=== PATIENT | female | born 1945 | race Caucasian/White ===

== ENCOUNTER 2022-10-23 11:14 | Outpatient (CLI) | payer OTHER, SELFPAY ==
[2022-10-23 15:14] LABS: SARS PCR* Negative SARS-CoV-2 (Negative)
== END 2022-10-23 11:15 | disposition home or self-care (01) ==
LOC: FBOREF 11:14
PROVIDERS: PCP Internal Medicine; Visit Provider Orthopaedic Surgery
DX: Z20.822 Contact with and (suspected) exposure to COVID-19 (principal)
CPT/HCPCS: 87635

== ENCOUNTER 2022-10-24 08:11 | Day surgery (SDC) | payer OTHER, SELFPAY ==
[2022-10-24] VITALS (23 sets, daily range): BP systolic 96–151; BP diastolic 53–74; PULSE 52–66; RESP 16–21; TEMP 36–36.5; O2SAT 93–100; BMI 30.7
[2022-10-24] MEDS: LACTATED RINGERS 1000 ML 1,000 ML 100 ML IV ×2 (08:20→10:56)
[2022-10-24] MEDS: OXYCODONE (CR) 10 MG TAB.ER.12H PO (09:03)
[2022-10-24] MEDS: CELECOXIB 200 MG CAPSULE PO (09:03)
[2022-10-24] MEDS: ACETAMINOPHEN 500 MG TABLET 1000 MG PO ×3 (09:03→22:12)
[2022-10-24] MEDS: SODIUM CHLORIDE 0.9 % (FLUSH) 10 ML SYRINGE IVF (09:16)
[2022-10-24] MEDS: MIDAZOLAM HCL 1 MG/ML inj IVP (09:37)
[2022-10-24] MEDS: fentaNYL 100 MCG/2 ML inj IVP (09:37)
--- NOTE | 2022-10-24 09:42 | SUR.PREOP ---
TIME?OUT:?0935 PT/RN/MDA?VERIFICATION?OF?SURGICAL?SITE Left [place],?PROCEDURE nerve block,?AND?CONSENT OBTAINED?PRIOR?TO?INVASIVE?PROCEDURE.
[2022-10-24] MEDS: CEFAZOLIN 1 GM inj IVP (10:30)
[2022-10-24] MEDS: TRANEXAMIC ACID 100 MG/ML INJ 1000 MG IV (10:40)
--- NOTE | 2022-10-24 11:56 | P.NB_ITS ---
Nerve Block Nerve Block Time Seen by Provider: 09:34 Date Seen: 10/24/22 Type of block requested by surgeon for post-operative analgesia: supraclavicular Side: left Time out performed: Yes Verification of patient name: Yes Verification of date of : Yes Site marking: site marked Name of person performing procedure: Hank Continuous monitoring Was continuous monitoring of O2 sat, B/P, radiation monitor, recorded every 15 minutes?: Yes Procedure Checklist: sterile prep, needles and gloves Ultrasound guided. Images saved: Yes Medications given in 5ml increments after negative aspiration: Ropivicaine %: 0.5 mL: 20 Needle gauge: 22 Decadron (mg): 10 Precedex (mcg): 25 Patient tolerated procedure well: Yes Block Charges Block Charge (with Pro Fee): Brachial Plexus Use of Ultrasound Machine for Block: Yes- US Guidance/pain block
--- NOTE | 2022-10-24 11:57 | W.ANESCHARGE ---
Anesthesia Charges Start Date/Time Anesthesia Start Date: 10/24/22 Anesthesia Start Time: 10:13 Stop Date/Time Anesthesia Stop Date: 10/24/22 Anesthesia Stop Time: 13:05 Summary Extremes of Age - Over 70 or under 1: MDA
[2022-10-24] MEDS: VANCOMYCIN 100 MG/ML INJ 1000 MG TOPICAL (12:23)
--- NOTE | 2022-10-24 12:23 | W.ANESCHARGE ---
Anesthesia Charges Start Date/Time Anesthesia Start Date: 10/24/22 Anesthesia Start Time: 10:13 Stop Date/Time Anesthesia Stop Date: 10/24/22 Anesthesia Stop Time: 13:05 Summary Extremes of Age - Over 70 or under 1: [employer]
--- NOTE | 2022-10-24 12:24 | CRLHL7_ITS ---
For Patients: As a result of the Cures Act, medical imaging exams and procedure reports are released immediately into your electronic medical record. You may view this report before your referring provider. If you have questions, please contact your health care provider. Indication: POSTOP REVERSE SHOULDER ARTHROPLASTY Technique: Two views left shoulder Findings/Impression: Hardware from a left total reverse shoulder arthroplasty is in satisfactory position. Bone alignment is normal. No sign of acute fracture. Postop changes are within normal limits. Dictated by Oral Bernard MD @ 10/24/2022 3:44:10 PM (Electronically Signed)
--- NOTE | 2022-10-24 12:30 | PM.ORPRC ---
Procedure Note Date of procedure: 10/24/22 Procedure: PREOPERATIVE DIAGNOSIS: Left shoulder rotator cuff tear arthropathy POSTOPERATIVE DIAGNOSIS: Left shoulder rotator cuff tear arthropathy NAME OF OPERATION: Left upper extremity reverse shoulder arthroplasty SURGEON: Herb Stevens MD RETAIL EVENT COORDINATOR: Dot Ash PA-C ANESTHESIA: General endotracheal ESTIMATED BLOOD LOSS: 100 mL COMPLICATIONS: None SPECIMENS: None DRAINS: None PREOPERATIVE ANTIBIOTICS: Ancef 1 grams IMPLANTS: 1. Tornier 25mm x 35 mm baseplate 2. 36mm standard glenosphere 3. 3B humeral stem 4. Low eccentric +0 humeral tray 5. 36mm +6 polyethylene INDICATIONS: The patient is a 76-year-old with a longstanding history of severe, unrelenting left shoulder pain secondary to rotator cuff tear arthropathy. Despite appropriate nonoperative management, including activity modification, anti-inflammatories, bzeu-nlx-cryypby pain medication, physical therapy, and injections they continue to have pain and disability. Operative intervention was offered. The risks, benefits and expected outcomes were discussed in detail. These included but were not limited to: Infection, bleeding, injury to blood vessel or nerve, venous thromboembolism. All questions were answered to their satisfaction. Use of an entry level assistant manager was necessary throughout the case for patient positioning and safety, soft tissue retraction, and closure. PROCEDURE: General anesthesia was administered. The patient was placed in the lazy beach chair position on the operating room table. The left upper extremity was prepped and draped in the usual sterile fashion. A standard deltopectoral incision was made. Subcutaneous dissection was taken with electrocautery to the deltopectoral interval. The cephalic vein was small. Therefore it was cauterized and divided. We bluntly entered the deltopectoral interval. We freed up the deltoid. The upper 1/3 of the insertion of the pectoralis was divided with cautery. The static retractor was placed. The clavipectoral fascia and CA ligament were divided. The circumflex vessels were controlled with electrocautery. The biceps was dissected out of the bicipital groove, was tagged with a #2 FiberWire suture and divided proximally. Two fiberWire sutures were placed in the subscapularis. The subscap was subperiosteally elevated off of the lesser tuberosity. The humeral head was delivered into the wound. The intramedullary humeral cutting guide was placed. We made the cut at the anatomic neck, in 30? of retroversion. Humeral sounds were used to assess the diameter of the canal. The broach was placed and had good rotational stability. The calcar reamer was used and the protective base plate cover was placed. Attention was then turned to the glenoid. Hohmann retractors were placed posteriorly. The labrum and biceps stump were sharply debrided. The origin of the inferior glenohumeral ligaments were subperiosteally released off of the glenoid. The drill guide was placed. The guide pin was placed in 0? of cephalic tilt. The reamer was used to bleeding bone. The central drill was used x2. The standard base plate was placed. This had excellent purchase. Locking screws were placed. The glenosphere was placed, the set screw was tightened. Attention then returned to the humerus. We placed a low eccentric standard base plate and standard poly. We reduced the shoulder and took it through a range of motion. It was found to be stable with appropriate soft tissue tension. Trial humeral components were removed. The biceps was tenodesed in the bicipital groove with drill holes and our previously placed FiberWire suture. We placed #2 FiberWire sutures in the lesser tuberosity for subsequent subscap repair. We assembled the humeral component on the back table. We placed it in the center of our subscapularis repair sutures and tapped it down to our humeral cut. This had excellent purchase. The shoulder was reduced and again was found to be stable with appropriate soft tissue tension. We did a 3 min dilute Betadine solution soak. We irrigated the wound with 3 L of normal saline via pulse lavage. We repaired the subscapularis to the lesser tuberosity with our previously placed FiberWire sutures. 1 g of Vancomycin powder was left in the soft tissues. The deltopectoral interval was loosely reapproximated with an 0 Vicryl in an interrupted [id number] fashion. Subcutaneous tissues were closed with the 2-0 Vicryl and a running 3-0 Monocryl suture. The skin was sealed with glue. A dry dressing and sling were applied. Sponge and needle counts were correct x2. The patient tolerated the procedure well, there were no apparent complications. They were awakened and extubated in the operating room, taken to the postanesthesia care unit in satisfactory condition. PLAN: The patient will be mobilized with physical therapy. The sling will be used for 6 weeks postoperatively. Active range of motion in forward flexion and abduction as tolerates. No external rotation greater than 0? for 6 weeks postoperatively. They will be discharged to home once medically appropriate.
--- NOTE | 2022-10-24 14:16 | P.IMCN_ITS ---
Date of Consult Patient: [place] Patient Consult date: 10/24/22 Requesting Physician: Orthopedics Primary Care Provider: Juju Mathews Consult Narrative Reason for consult: Manage medical problems postoperatively. Narrative: Jami Frost is a 76 year old female who underwent a left reverse total shoulder arthroplasty earlier today. This was uncomplicated. Her active medical problems are as follows: 1. Type 2 diabetes - she does not routinely check her blood sugars. She takes glimepiride or Amaryl 4 mg twice daily, metformin a 1000 mg twice daily, and linagliptin 5 mg once daily. Her A1c was 9.1 on 10/16/2022. 2. Hypertension - well controlled on lisinopril 10 mg daily. Her potassium was 5.1 on 10/16/2022. 3. Hyperlipidemia - she takes Pravastatin 40 mg daily for this. 4. Depression - she takes Effexor XR 150 mg daily for this. 5. Dementia Review of Systems Status of ROS: Reports: 10 or more systems reviewed and unremarkable except as noted in History and below Musculo: Reports: other (She has decreased sensation in her left upper e xtremity due to her block.) PFSH PFS Medical History (Updated 10/24/22 @ 14:43 by Yohannes Barker MD) Anemia Arthritis Dementia Depression Diabetes Elevated cholesterol Fibromyalgia Folliculitis GERD (gastroesophageal reflux disease) Hypertension Incontinence of urine PONV (postoperative nausea and vomiting) RLS (restless legs syndrome) Surgical History H/O arthroscopy of shoulder History of bladder suspension procedure S/p reverse total shoulder arthroplasty Family History Mother Cancer Father Brain cancer Sister Colon cancer Social History (Updated 10/24/22 @ 14:52 by Yohannes Barker MD) Narrative: She is and lives in [place], [place] with her . Smoking Status: Never smoker How often do you have a drink containing alcohol: never AUDIT-C Alcohol total score: 0 Non-prescribed substance use: denies use Caffeine: Yes (Diet Coke, 3 cans/day) service: No Meds Home Medications and Allergies Home Medications Medication Instructions Recorded Confirmed Type acetaminophen 500 mg capsule 1,000 mg PO Q6H PRN 10/02/22 10/24/22 History aspirin 81 mg tablet,delayed 81 mg PO QDAY 10/02/22 10/24/22 History release cholecalciferol (vitamin D3) 50 50 mcg PO QDAY 10/02/22 10/24/22 History mcg (2,000 unit) capsule glimepiride 4 mg tablet 4 mg PO QDAY 10/02/22 10/24/22 History linagliptin 5 mg tablet (Tradjenta) 5 mg PO QDAY 10/02/22 10/24/22 History lisinopril 10 mg tablet 10 mg PO QDAY 10/02/22 10/24/22 History metformin 500 mg tablet 1,000 mg PO BID 10/02/22 10/24/22 History pravastatin 40 mg tablet 40 mg PO QDAY 10/02/22 10/24/22 History ropinirole 2 mg tablet 2 mg PO QDAY PRN 10/02/22 10/24/22 History venlafaxine 150 mg 150 mg PO DAILY 10/02/22 10/24/22 History capsule,extended release 24 hr Allergies Allergy/AdvReac Type Severity Reaction Status Date / Time pioglitazone [From [facility]] Allergy Unknown Verified 10/24/22 08:35 simvastatin Allergy Unknown Verified 10/24/22 08:35 penicillin V Allergy Rash Verified 10/24/22 08:35 Exam Const: Vital Signs, click to edit/add: Vital Signs - 24 hr 10/24/22 08:45 10/24/22 09:30 10/24/22 09:35 Temperature 97.7 F Pulse Rate 65 66 66 Respiratory Rate 16 16 16 Blood Pressure 139/65 135/67 135/66 Pulse Oximetry 99 99 100 Oxygen Delivery Me thod Room Air Nasal Cannula Nasal Cannula Oxygen Flow Rate 2 2 10/24/22 09:40 10/24/22 13:05 10/24/22 13:10 Temperature 97.0 F L Pulse Rate 60 54 L 53 L Respiratory Rate 16 18 18 Blood Pressure 130/58 L 125/60 139/62 Pulse Oximetry 100 100 100 Oxygen Delivery Me thod Nasal Cannula Non Rebreather Mas k Non Rebreather Mas k Oxygen Flow Rate 2 5 5 10/24/22 13:30 10/24/22 13:15 10/24/22 13:20 Temperature Pulse Rate 60 52 L 60 Respiratory Rate 18 18 18 Blood Pressure 142/72 H 128/61 104/60 Pulse Oximetry 99 100 99 Oxygen Delivery Me thod Nasal Cannula Non Rebreather Mas k Nasal Cannula Oxygen Flow Rate 2 5 2 10/24/22 13:25 10/24/22 13:35 Temperature 97.0 F L Pulse Rate 60 59 L Respiratory Rate 18 18 Blood Pressure 96/53 L 114/67 Pulse Oximetry 99 99 Oxygen Delivery Me thod Nasal Cannula Nasal Cannula Oxygen Flow Rate 2 2 Documenting provider has reviewed patient's vital signs: yes Common normals: no apparent distress General appearance: cooperative and comfortable Orientation/consciousness: Yes awake HENMT: Common normals: normocephalic, head/scalp atraumatic and external ears normal Head and scalp: normocephalic and atraumatic Face and sinus: normal facial exam External ear: external ears normal Throat: posterior oropharynx normal Eye: Common normals: EOMs intact bilaterally General eye: normal appearance of both eyes Periorbital: periorbital findings normal Eyelid: eyelids normal Neck & C-Spine: Common normals: no lymphadenopathy and no JVD Resp: Common normals: normal respiratory effort Effort & inspection: able to speak in complete sentences Cardio: Common normals: no JVD, regular rate, regular rhythm, S1 normal heart sound and S2 normal heart sound Rate: regular rate Rhythm: regular rhythm Heart sounds: S1 normal and S2 normal Peripheral pulses: radial pulses present GI: Common normals: Normal to inspection, nondistended, normoactive bowel sounds present, soft to palpation and non-tender Inspection: normal to inspection Auscultation: normoactive bowel sounds Palpation: soft Rectal Exam - Female: deferred : Common normals: no CVA tenderness Bladder/kidney exam: no CVA tenderness Back & Pelvis: Common normals: no CVA tenderness Neuro: Sensorium/orientation: awake Sensory exam: extremities (no edema noted in bilateral lower ext) Psych: Common normals: speech normal Appearance: grossly normal Attitude: calm Activity/motor behavior: appropriate eye contact Speech: normal speech Mood and affect: euthymic mood Skin: Common normals: no rashes or lesions noted General skin exam: no rashes or lesions noted Assessment and Plan Assessment and plan (1) Diabetes: Status: Acute (2) Hypertension: Status: Acute (3) Dementia: Status: Acute (4) Depression: Status: Acute (5) RLS (restless legs syndrome): Status: Acute Plan Will wait until she is eating to restart her diabetes medicine. Will wait until her blood pressure comes up to start her blood pressure medicine. Will monitor for behavioral disturbances. Will restart her Effexor XR. Will make her ropinirole available as needed for restless legs. Will recheck her potassium as she had a potassium of 5.1 on 10/16/2022. Please send a copy of this dictation to Dr. Juju Mathews. Yohannes Barker MD
[2022-10-24] MEDS: CEFAZOLIN 1 GM in 0.9 % SODIUM CHLORIDE Mini-bag 100 ML IVPB ×2 (16:36→23:48)
[2022-10-24] MEDS: LACTATED RINGERS 1000 ML 1,000 ML 75 ML IV (17:58)
--- NOTE | 2022-10-24 20:23 | PC.NURSE ---
Nursing Care Hours: [id number] Pt this shift came from PACU fatigued and pale. 2L NC to keep sats above 90%. With in the first hour pt more alert and responsive. Difficulty answering healthcare questions for hospitalist but otherwise alert and oriented. Stable on room air once awake, VSS, no c/o pain. Nerve block still effective, pt unable to move fingers. Color and warmth intact, L radial pulse strong. Up to bathroom and successful void. Up to chair for dinner. Pt has a flat affect and delayed speech, reported from PACU nurse who did admission assessment that this was seen before surgery. Ice to L shoulder.
[2022-10-24] MEDS: SENNOSIDES 1 TAB TABLET 2 TAB PO (20:52)
[2022-10-24] MEDS: PRAVASTATIN SODIUM 20 MG TABLET 40 MG PO (20:52)
[2022-10-25 03:45] VITALS: BP 121/48; PULSE 62; RESP 18; TEMP 36.6; O2SAT 95
[2022-10-25] MEDS: ACETAMINOPHEN 500 MG TABLET 1000 MG PO ×2 (03:46→09:44)
--- NOTE | 2022-10-25 05:18 | PC.NURSE ---
END OF SHIFT NOTE: PT PLEASANT AND COOPERATIVE. PT OCCASIONALLY FORGETFUL. PT DENIES CP, SOB, N/V. AMBULATES WITH SBA. VSS ON RA; AFEBRILE. BG@0145 =[id number]; PER [facility] [place] 5UNITS SSI GIVEN. ACTIVE ICE TO LEFT SHOULDER. BED ALARM ON AND CALL LIGHT WITHIN REACH OF PT.?
[2022-10-25 06:58] LABS: Hematocrit 28.9 % (33.0-51.0); Hemoglobin* 9.3 gm/dL (12.0-16.0); Mean Corpuscular HGB Conc 32 gm/dL (32-36); Mean Corpuscular Hemoglobin 27 pg (26-34); Mean Corpuscular Volume 85 fL (80-100); Platelet Count* 215 K/uL (140-440); White Blood Count* 11.68 K/uL (4.50-11.00)
[2022-10-25 07:00] VITALS: BP 141/11; PULSE 65; PULSE 70; RESP 16; TEMP 36.4; O2SAT 93
[2022-10-25 07:04] LABS: Slide Review Reflex No
[2022-10-25 07:19] LABS: Potassium* 5.1 mmol/L (3.6-5.1); Sodium* 130 mmol/L (135-149)
[2022-10-25 07:22] LABS: Blood Urea Nitrogen* 29 mg/dL (7-30); Creatinine* 1.2 mg/dL (0.5-1.5); Est. Creatinine Clearance* 29.63; Estimated Glomerular Filt Rate 47 ml/min
[2022-10-25] MEDS: CEFAZOLIN 1 GM in 0.9 % SODIUM CHLORIDE Mini-bag 100 ML IVPB (07:44)
--- NOTE | 2022-10-25 09:19 | PM.ORPN ---
Subjective Subjective Time Seen by Provider: 08:00 Date Seen: 10/25/22 Principal diagnosis: Status post left reverse total shoulder arthroplasty Interval history: Patient is comfortable this morning. Her block is working well. She has needed no narcotic pain medication. She will be discharging today to home with her . Ortho Exam Narrative Exam Narrative: Alert and oriented x3. Patient is in no acute distress. Converses without labored breathing. Hearing is grossly intact. Examination of the left upper extremity shows the dressing is intact. Ecchymosis is present. Soft tissue edema is present. Left pulses are 2+ radial and ulnar. She has no sensation in her hand. She has no motor. Block is working well. Arm is in a sling. Is adjusted Const Vital Signs, click to edit/add: Vital Signs - 24 hr 10/24/22 09:30 10/24/22 09:35 10/24/22 09:40 Temperature Pulse Rate 66 66 60 Pulse Rate [Left Radial] Pulse Rate [Right Pulse Oximeter] Respiratory Rate 16 16 16 Blood Pressure 135/67 135/66 130/58 L Blood Pressure [Left Arm] Blood Pressure [Right Arm] Pulse Oximetry 99 100 100 Oxygen Delivery Method Nasal Cannula Nasal Cannula Nasal Cannula Oxygen Flow Rate 2 2 2 10/24/22 13:05 10/24/22 13:10 10/24/22 13:30 Temperature 97.0 F L Pulse Rate 54 L 53 L 60 Pulse Rate [Left Radial] Pulse Rate [Right Pulse Oximeter] Respiratory Rate 18 18 18 Blood Pressure 125/60 139/62 142/72 H Blood Pressure [Left Arm] Blood Pressure [Right Arm] Pulse Oximetry 100 100 99 Oxygen Delivery Method Non Rebreather Mask Non Rebreather Mask Nasal Cannula Oxygen Flow Rate 5 5 2 10/24/22 13:15 10/24/22 13:20 10/24/22 13:25 Temperature Pulse Rate 52 L 60 60 Pulse Rate [Left Radial] Pulse Rate [Right Pulse Oximeter] Respiratory Rate 18 18 18 Blood Pressure 128/61 104/60 96/53 L Blood Pressure [Left Arm] Blood Pressure [Right Arm] Pulse Oximetry 100 99 99 Oxygen Delivery Method Non Rebreather Mask Nasal Cannula Nasal Cannula Oxygen Flow Rate 5 2 2 10/24/22 13:35 10/24/22 15:27 10/24/22 15:27 Temperature 97.0 F L 96.8 F L Pulse Rate 59 L 54 L Pulse Rate [Left Radial] Pulse Rate [Right Pulse Oximeter] 54 L Respiratory Rate 18 21 Blood Pressure 114/67 Blood Pressure [Left Arm] 124/70 Blood Pressure [Right Arm] Pulse Oximetry 99 Oxygen Delivery Method Nasal Cannula Nasal Cannula Oxygen Flow Rate 2 2 10/24/22 14:15 10/24/22 14:30 10/24/22 14:45 Temperature 96.8 F L Pulse Rate Pulse Rate [Left Radial] 55 L 54 L 53 L Pulse Rate [Right Pulse Oximeter] Respiratory Rate 21 18 18 Blood Pressure Blood Pressure [Left Arm] Blood Pressure [Right Arm] 128/71 115/71 112/69 Pulse Oximetry 97 94 Oxygen Delivery Method Nasal Cannula Room Air Room Air Oxygen Flow Rate 2 10/24/22 15:16 10/24/22 15:30 10/24/22 16:00 Temperature 97.4 F L Pulse Rate Pulse Rate [Left Radial] 60 60 61 Pulse Rate [Right Pulse Oximeter] Respiratory Rate 18 18 Blood Pressure Blood Pressure [Left Arm] Blood Pressure [Right Arm] 115/55 L 151/65 H Pulse Oximetry 94 94 Oxygen Delivery Method Room Air Room Air Room Air Oxygen Flow Rate 10/24/22 17:00 10/24/22 18:00 10/24/22 19:00 Temperature 97.4 F L Pulse Rate Pulse Rate [Left Radial] 61 60 Pulse Rate [Right Pulse Oximeter] Respiratory Rate 18 18 18 Blood Pressure Blood Pressure [Left Arm] Blood Pressure [Right Arm] 121/69 105/74 140/57 H Pulse Oximetry 94 94 93 Oxygen Delivery Method Room Air Room Air Room Air Oxygen Flow Rate 10/24/22 20:00 10/24/22 23:27 10/25/22 03:45 Temperature 97.5 F L 97.8 F Pulse Rate Pulse Rate [Left Radial] 60 Pulse Rate [Right Pulse Oximeter] 63 62 Respiratory Rate 16 16 18 Blood Pressure Blood Pressure [Left Arm] Blood Pressure [Right Arm] 128/56 L 121/48 L Pulse Oximetry 94 95 Oxygen Delivery Method Room Air Room Air Oxygen Flow Rate 10/25/22 07:00 Temperature 97.6 F Pulse Rate Pulse Rate [Left Radial] Pulse Rate [Right Pulse Oximeter] 70 Respiratory Rate 16 Blood Pressure Blood Pressure [Left Arm] Blood Pressure [Right Arm] 141/11 H Pulse Oximetry 93 Oxygen Delivery Method Room Air Oxygen Flow Rate Assessment and Plan Assessment and plan (1) Status post reverse arthroplasty of left shoulder: Problem details: RSA (10/24/2022, Dr. Stevens) Status: Acute Assessment and Plan: Patient is comfortable this morning. Plan for discharge is to home when they meet discharge criteria. Patient will wear the sling for 6 weeks post surgery. They can take it off for comfort and for exercises. Activity: no external rotation of the operative shoulder past 0? x 6 weeks. Forward flexion and abduction of the shoulder is allowed as tolerated. They will work on range of motion of the elbow, wrist, fingers once the block has wore off on the operative extremity. Patient will begin physical therapy for the operative shoulder next week. For discharge, oxycodone and Tylenol for pain. Do not drive while on narcotic pain medication. Drive only when safe to do so, when they have normal use/function of the upper extremity, this will likely take 6 weeks. Patient will minimize and discontinue the narcotic as soon as possible. I would like her to take minimal oxycodone. I do not think she will tolerate this well. A half a tablet should be sufficient with Tylenol. She has not had any in the hospital, for she has not needed any. Block is working well. Remove dressing in 1 week. Dressing is waterproof. May shower. Surgical glue covers the wound. Do not scrub the wound. Expect swelling and bruising about the shoulder and upper extremity. Use of ice/active ice without restriction. Notify Orthopedics his swelling is excessive. notify Orthopedics with any questions or concerns. [phone] Return to Orthopedic clinic next week for a wound check Return to clinic in [address] Stevens.
[2022-10-25] MEDS: SENNOSIDES 1 TAB TABLET 2 TAB PO (09:42)
[2022-10-25] MEDS: VENLAFAXINE ER 75 MG CAPSULE 150 MG PO (09:44)
--- NOTE | 2022-10-25 15:02 | PC.NURSE ---
Pt alert and oriented to self only. Pt denies pain, SOB, chest pain, and N/V. Pt left shoulder dressing is CDI. Pt up with SBA to bathroom and chair. Pt tolerating a regular diet but only finished 25% of breakfast this morning 10/25/22. Pt is voiding. Written and Verbal education given to pt and spouse (caregiver) who verbalized their understanding. Pt IV was taken out at discharge at 1245. Pt left via wheelchair with spouse.
--- NOTE | 2022-10-25 15:16 | P.DS_ITS ---
DS: Providers Provider Time Seen by Provider: 09:00 Date Seen: 10/25/22 Date of admission: 10/24/2022 Primary care physician: Juju Mathews Admitting Clinician: Herb Stevens MD Consults: 10/24/22 13:58 Consult to Occupational Therapy [CONS] Routine Comment: Reason(s) for OT Consult:: Evaluate and Treat Any Restrictions?:: See Comment Consult to Physical Therapy [CONS] Routine Comment: Reason(s) for PT Consult:: Evaluate and Treat Any Restrictions?:: See Comment Consult to Physician [CONS] Routine Comment: Consulting Provider: Hospitalists Has provider been notified: No Consult to Senior Piping Designer [CONS] Routine Comment: Reason for Consult:: Discharge Planning Needs Attending Physician on discharge: Herb Stevens MD Date of Discharge: 10/25/22 DS: Diagnosis Discharge Diagnosis (1) Status post reverse arthroplasty of left shoulder: Status: Acute Problem details: RSA (10/24/2022, Dr. Stevens) (2) Diabetes: Status: Acute (3) Hypertension: Status: Acute (4) Dementia: Status: Acute (5) RLS (restless legs syndrome): Status: Acute (6) Depression: Status: Acute DS: Summary Hospital Course Hospital Course: 76-year-old woman presented for elective left shoulder reverse arthroplasty. This is undertaken successfully without any apparent complications. Recovery relatively uneventful. Status at Discharge Cognitive/behavioral status at discharge: Baseline level of dementia. Functional status at discharge: independent ambulation Overall status at discharge: patient is progressing back to baseline Time Spent with Patient Time attestation: Total time spent providing and/or coordinating discharge services: Time spent: Less than 30 minutes Exam Narrative: Exam Narrative: HENMT:?? Common normals: no rmocephalic, head/ scalp atraumatic a nd external ears n ormal? Head and sc alp: normocephalic and atraumatic? F rasta and sinus: nor mal facial exam? E xternal ear: exter nal ears normal? T hroat: posterior o ropharynx normal Eye:?? Common normals: EO Ms intact bilatera lly? General eye: normal appearance of both eyes? Inga orbital: periorbit al findings normal ? Eyelid: eyelids normal Neck & C-Spine:??M Common normals: no lymphadenopathy a nd no JVD Resp:?? Common normals: no rmal respiratory e ffort? Effort & in spection: able to speak in complete sentences Cardio:?? Common normals: no JVD, regular rate , regular rhythm, S1 normal heart so und and S2 normal heart sound? Rate: regular rate? Rhy thm: regular rhyth m? Heart sounds: S 1 normal and S2 no rmal? Peripheral p ulses: radial puls es present GI:?? Common normals: No rmal to inspection , nondistended, no rmoactive bowel so unds present, soft to palpation and non-tender? Inspec tion: normal to in spection? Ausculta tion: normoactive bowel sounds? Palp ation: soft? Recta l Exam - Female: d eferred :?? Common normals: no CVA tenderness? B ladder/kidney exam : no CVA tendernes s Back & Pelvis:?? Common normals: no CVA tenderness Neuro:?? Sensorium/orientat ion: awake? Sensor y exam: extremitie s (no edema noted in bilateral lower ext) Psych:?? Common normals: sp eech normal? Appea domenico: grossly nor mal? Attitude: anni m? Activity/motor behavior: appropri ate eye contact? S peech: normal spee ch? Mood and affec t: euthymic mood Skin:?? Common normals: no rashes or lesions noted? General sk in exam: no rashes or lesions noted Const: Vital Signs, click to edit/add: Vital Signs - 24 hr 10/24/22 15:27 10/24/22 15:27 10/24/22 15:30 Temperature 96.8 F L Pulse Rate 54 L Pulse Rate [Left R adial] 60 Pulse Rate [Right Pulse Oximeter] 54 L Respiratory Rate 21 Blood Pressure [Le ft Arm] 124/70 Blood Pressure [Ri ght Arm] Pulse Oximetry 94 Oxygen Delivery Me thod Nasal Cannula Room Air Oxygen Flow Rate 2 10/24/22 16:00 10/24/22 17:00 10/24/22 18:00 Temperature Pulse Rate Pulse Rate [Left R adial] 61 61 Pulse Rate [Right Pulse Oximeter] Respiratory Rate 18 18 18 Blood Pressure [Le ft Arm] Blood Pressure [Ri ght Arm] 151/65 H 121/69 105/74 Pulse Oximetry 94 94 Oxygen Delivery Me thod Room Air Room Air Room Air Oxygen Flow Rate 10/24/22 19:00 10/24/22 20:00 10/24/22 23:27 Temperature 97.4 F L 97.5 F L Pulse Rate Pulse Rate [Left R adial] 60 60 Pulse Rate [Right Pulse Oximeter] 63 Respiratory Rate 18 16 16 Blood Pressure [Le ft Arm] Blood Pressure [Ri ght Arm] 140/57 H 128/56 L Pulse Oximetry 93 94 Oxygen Delivery Me thod Room Air Room Air Oxygen Flow Rate 10/25/22 03:45 10/25/22 07:00 10/25/22 07:00 Temperature 97.8 F 97.6 F Pulse Rate Pulse Rate [Left R adial] 65 Pulse Rate [Right Pulse Oximeter] 62 70 70 Respiratory Rate 18 16 16 Blood Pressure [Le ft Arm] Blood Pressure [Ri ght Arm] 121/48 L 141/11 H Pulse Oximetry 95 93 Oxygen Delivery Me thod Room Air Room Air Oxygen Flow Rate Documenting provider has reviewed patient's vital signs: yes DS: Data Data Completed and Pending Labs on day of discharge: Labs from last 24 hours 10/25/22 10/25/22 05:56 05:56 WBC 11.68 H RBC 3.40 L Hgb 9.3 L Hct 28.9 L MCV 85 MCH 27 MCHC 32 Plt Count 215 Sodium 130 L Potassium 5.1 BUN 29 Creatinine 1.2 Estimated Creat Clear 29.63 Estimated GFR 47 Discharge Plan Discharge Disposition: Home, Self-Care Discharging Surgeon: Herb Stevens Follow-Up Appointment: One week Prescriptions: New sennosides [Senna Lax] 8.6 mg Tablet 17.2 mg PO BID PRN (Reason: constipation) Qty: 100 0RF acetaminophen 500 mg capsule 500 - 1,000 mg PO Q6H MDD 4000mg per day PRN (Reason: pain) Qty: 100 0RF oxycodone 5 mg Tablet 2.5 mg PO Q4-6H MDD 6 tabs per day PRN (Reason: Pain) Qty: 30 0RF Rx Instructions: Minimize. Discontinue as soon as possible Continued aspirin 81 mg tablet,delayed release (DR/EC) 81 mg PO QDAY Hold Instructions: Resume on 11/24/22. Resume aspirin 81 mg daily upon completion of the aspirin 81 twice daily order per your orthopedic surgeon. cholecalciferol (vitamin D3) 50 mcg (2,000 unit) capsule 50 mcg PO QDAY glimepiride 4 mg tablet 4 mg PO QDAY Tradjenta 5 mg tablet 5 mg PO QDAY lisinopril 10 mg tablet 10 mg PO QDAY metformin 500 mg tablet 1,000 mg PO BID pravastatin 40 mg tablet 40 mg PO QDAY ropinirole 2 mg tablet 2 mg PO QDAY PRN venlafaxine 150 mg capsule,extended release 24hr 150 mg PO DAILY Discontinued acetaminophen 500 mg capsule 1,000 mg PO Q6H PRN Activity Detail: Wear the sling for 6 weeks post-surgery. Take it off for comfort and for exercises. Activity: no external rotation of the operative shoulder past 0? x 6 weeks. Forward flexion and abduction of the shoulder is allowed as tolerated. Range of motion of the elbow, wrist, fingers once the block has worn off on the operative extremity 3 or more times per day. Begin physical therapy for the operative shoulder next week. Do not drive while on narcotic pain medication. Drive only when safe to do so, when you have normal use/function of the upper extremity, this will likely take 6 weeks due to wearing a sling. Minimize and discontinue the narcotic as soon as possible. Remove dressing in 1 week. Dressing is waterproof. May shower. Surgical glue covers the wound. Do not scrub the wound. Expect swelling and bruising about the shoulder and upper extremity. Use of ice/active ice without restriction. notify Orthopedics with any questions or concerns [phone]. Return to Orthopedic clinic next week for a wound check as scheduled. Return to clinic in [address] Stevens. Discharge Diet: Diabetic Patient Instructions: Acetaminophen (By mouth), Oxycodone, Rapid Release (By mouth) (ETH-Oxydose, Oxy IR,..., Senna (By mouth) (Sen, Senna-lax), Shoulder Arthroplasty (DC) Forms: Work/School Release Follow-up: Kaity Amato PA-C [Physician Systems Integrator] - 11/17/22 10:30 am ([facility]. ) Juju Mathews [Primary Care Provider] - Discharge Orders: Discharge Order (Routine); Ordered 10/25/22 Ordered By: Kaity Amato Consulting provider completed their portion of the discharge: Yes
== END 2022-10-25 12:45 | disposition home or self-care (01) ==
LOC: OR 08:12 → MEDSURG 08:15
PROVIDERS: PCP Internal Medicine; Visit Provider Orthopaedic Surgery
PROC: 0RRJ0JZ Replacement of Right Shoulder Joint with Synthetic Substitute, Open Approach (ICD-10-PCS; CPT 23472; principal; 2022-10-24 10:15)
DX: M75.102 Unspecified rotator cuff tear or rupture of left shoulder, not specified as traumatic (principal); G89.18 Other acute postprocedural pain; E11.9 Type 2 diabetes mellitus without complications; I10 Essential (primary) hypertension; F03.90 Unspecified dementia, unspecified severity, without behavioral disturbance, psychotic disturbance, mood disturbance, and anxiety; G25.81 Restless legs syndrome; E78.5 Hyperlipidemia, unspecified; F32.A Depression, unspecified; Z79.84 Long term (current) use of oral hypoglycemic drugs
CPT/HCPCS: 23472; 01630; 01638; 36415; 64415; 73030; 76942; 82565; 82962; 84132; 84295; 84520; 85027; 97110; 97116; 97162; 97165; 97535; 99100; 99254; A9270; C1713; C1776; J0330; J0690; J1100; J2250; J2370; J2405; J2704; J2795; J3010; J3370; J7120; L3670

== ENCOUNTER 2023-03-02 12:45 | Outpatient (CLI) | payer OTHER, SELFPAY ==
--- NOTE | 2023-03-02 13:00 | CRLHL7_ITS ---
For Patients: As a result of the Century Cures Act, medical imaging exams and procedure reports are released immediately into your electronic medical record. You may view this report before your referring provider. If you have questions, please contact your health care provider. Indication: Neck and arm pain. Technique: MRI of the cervical spine was performed without the use of intravenous contrast. Comparison: None relevant available. Findings: Portions of the examination are degraded by patient motion artifact. The vertebral body heights appear maintained without evidence of fracture. No discrete T1 hypointense marrow infiltrating process. Mild multilevel disc desiccation without significant height loss. No abnormal cord signal. Incidental partially empty sella morphology. Chronic microvascular changes of the visualized brain stem and cerebellum. Edema potentially stress or reactive process involving the left T2 facet. C2-3: No spinal canal or neural foraminal narrowing. C3-4: No spinal canal narrowing. Mild right neural foraminal narrowing secondary to uncovertebral joint and facet hypertrophy. Left neural foramina appears patent. C4-5: No spinal canal narrowing. Moderate right neural foraminal narrowing secondary to uncovertebral joint and facet hypertrophy. Left neural foramina appears patent. C5-6: Mild spinal canal narrowing. Moderate neural foraminal narrowing secondary to uncovertebral joint and facet hypertrophy. C6-7: Mild spinal canal narrowing. Moderate right and mild left neural foraminal narrowing secondary to uncovertebral joint and facet hypertrophy. C7-T1: No spinal canal or neural foraminal narrowing. Impression: 1. Motion artifact. 2. At C4-5, moderate right neural foraminal narrowing. 3. At C5-6, mild spinal canal with moderate neural foraminal narrowing. 4. At C6-7, mild spinal canal, with moderate right and mild left neural foraminal narrowing. 5. No abnormal cord signal. Dictated by Víctor Snowden MD @ 03/02/2023 3:29:44 PM (Electronically Signed)
== END 2023-03-02 12:46 | disposition home or self-care (01) ==
LOC: MRI 12:46
PROVIDERS: PCP Internal Medicine; Visit Provider Orthopaedic Surgery Orthopaedic Surgery of the Spine
DX: M48.02 Spinal stenosis, cervical region (principal); M50.221 Other cervical disc displacement at C4-C5 level; M50.222 Other cervical disc displacement at C5-C6 level; M50.223 Other cervical disc displacement at C6-C7 level
CPT/HCPCS: 72141

== ENCOUNTER 2023-08-28 13:18 | Emergency (ER) | payer OTHER, SELFPAY ==
[2023-08-28] VITALS (9 sets, daily range): BP systolic 133–158; BP diastolic 48–93; PULSE 70–80; RESP 18; TEMP 36.4; O2SAT 86–98; BMI 29.3
--- NOTE | 2023-08-28 13:41 | CRLHL7_ITS ---
For Patients: As a result of the Cures Act, medical imaging exams and procedure reports are released immediately into your electronic medical record. You may view this report before your referring provider. If you have questions, please contact your health care provider. INDICATION: Trauma, fall. TECHNIQUE: CT cervical spine without contrast. COMPARISON: February 12, 2023. FINDINGS: Vertebrae: Alignment is normal. There are no fractures or suspicious bony lesions. Discs and facet joints: There are moderate diffuse degenerative changes in the disc spaces and facet joints. Extraspinal findings: Paraspinous soft tissues are unremarkable. IMPRESSION: 1. No sign of acute injury. 2. Multilevel degenerative spondylosis. Please note that all CT scans at this facility use dose modulation, iterative reconstruction, and/or weight-based dosing when appropriate to reduce radiation dose to as low as reasonably achievable. Dictated by Jose Avelar MD @ 08/28/2023 3:34:17 PM (Electronically Signed)
--- NOTE | 2023-08-28 13:41 | CRLHL7_ITS ---
For Patients: As a result of the Century Cures Act, medical imaging exams and procedure reports are released immediately into your electronic medical record. You may view this report before your referring provider. If you have questions, please contact your health care provider. INDICATION: Trauma, fall. TECHNIQUE: CT head without contrast. COMPARISON: February 12, 2023. FINDINGS: CSF spaces: Within normal limits for age. Brain parenchyma and extra-axial spaces: The deng-white differentiation is normal. No sign of mass, hemorrhage, or midline shift. No extra-axial fluid collection. Skull base and calvarium: The visualized paranasal sinuses and mastoid air cells demonstrate no acute or significant findings. The visualized orbits are grossly unremarkable. No skull fractures. IMPRESSION: No sign of acute injury and no change from the prior exam. Please note that all CT scans at this facility use dose modulation, iterative reconstruction, and/or weight-based dosing when appropriate to reduce radiation dose to as low as reasonably achievable. Dictated by Jose Avelar MD @ 08/28/2023 3:37:43 PM (Electronically Signed)
--- NOTE | 2023-08-28 13:42 | CRLHL7_ITS ---
For Patients: As a result of the Cures Act, medical imaging exams and procedure reports are released immediately into your electronic medical record. You may view this report before your referring provider. If you have questions, please contact your health care provider. Indication: Fall Technique: Three views Comparison: None Findings/Impression: Bones: No definite evidence of fracture. Joint spaces: No dislocation. Soft tissues: Atherosclerosis. Mild heterotopic ossification adjacent to the right greater trochanter. Dictated by Zeb Jackman MD @ 08/28/2023 3:48:49 PM (Electronically Signed)
--- NOTE | 2023-08-28 13:42 | ED.GENADULT ---
HPI - General Adult General Chief complaint: Extremity Pain/Injury, Lower Stated complaint: Fell-hit head Time Seen by Provider: 08/28/23 13:32 History of Present Illness HPI narrative: This 69-year-old female comes in with her . She lives at home with him. He reports that she has significant dementia. She is a very poor historian. He reports that she fell a couple times today. These were unwitnessed falls. He reports that she has been getting more weak over the past few months. He states that she ambulates with very short steps currently. The patient was able to pivot on the wait mostly happening on her right leg when getting out of the car. She is moving all extremities but does complain of pain in the region of her left hip. She states that she thinks that she hit her head but it is clear that she does not have good memory. She does not show any sign of injury on her head and does not report any pain when palpating along the midline of her spine. Related Data Home Medications Medication Instructions Recorded Confirmed aspirin 81 mg tablet,delayed 81 mg PO QDAY 10/02/22 12/13/22 release cholecalciferol (vitamin D3) 50 50 mcg PO QDAY 10/02/22 12/13/22 mcg (2,000 unit) capsule glimepiride 4 mg tablet 4 mg PO QDAY 10/02/22 12/13/22 linagliptin 5 mg tablet (Tradjenta) 5 mg PO QDAY 10/02/22 12/13/22 lisinopril 10 mg tablet 10 mg PO QDAY 10/02/22 12/13/22 metformin 500 mg tablet 1,000 mg PO BID 10/02/22 12/13/22 pravastatin 40 mg tablet 40 mg PO QDAY 10/02/22 12/13/22 ropinirole 2 mg tablet 2 mg PO QDAY PRN 10/02/22 12/13/22 venlafaxine 150 mg 150 mg PO DAILY 10/02/22 12/13/22 capsule,extended release 24 hr Previous Rx's Medication Instructions Recorded cephalexin 500 mg capsule 2,000 mg (4 x 500 mg) PO ONCE #4 02/28/23 caps Allergies Allergy/AdvReac Type Severity Reaction Status Date / Time pioglitazone [From Actos] Allergy Unknown Verified 12/13/22 13:28 simvastatin Allergy Unknown Verified 12/13/22 13:28 penicillin V Allergy Rash Verified 12/13/22 13:28 Review of Systems Status of ROS: Reports: unobtainable due to mental status Narrative: Unable to obtain due to dementia. [facility] Medical History (Updated 08/28/23 @ 16:15 by Steve Rose MD) Health care directive on file (10/26/21) ?Z78.9 - Other specified health status (ICD-10) RLS (restless legs syndrome) ?G25.81 - Restless legs syndrome (ICD-10) PONV (postoperative nausea and vomiting) ?R11.2 - Nausea with vomiting, unspecified (ICD-10) ?Z98.890 - Other specified postprocedural states (ICD-10) Fibromyalgia ?M79.7 - Fibromyalgia (ICD-10) Dementia ?F03.90 - Unspecified dementia, unspecified severity, without behavioral disturbance, psychotic disturbance, mood disturbance, and anxiety (ICD-10) Depression ?F32.A - Depression, unspecified (ICD-10) Anemia ?D64.9 - Anemia, unspecified (ICD-10) Folliculitis ?L73.9 - Follicular disorder, unspecified (ICD-10) Arthritis ?M19.90 - Unspecified osteoarthritis, unspecified site (ICD-10) Incontinence of urine ?R32 - Unspecified urinary incontinence (ICD-10) GERD (gastroesophageal reflux disease) ?K21.9 - Gastro-esophageal reflux disease without esophagitis (ICD-10) Diabetes ?E11.9 - Type 2 diabetes mellitus without complications (ICD-10) Elevated cholesterol ?E78.00 - Pure hypercholesterolemia, unspecified (ICD-10) Hypertension ?I10 - Essential (primary) hypertension (ICD-10) Surgical History (Updated 04/19/23 @ 09:40 by Jeffy Everett) 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 Smoking Status: Never smoker Do you use any of these nicotine containing products: None Second hand tobacco smoke exposure: No How often do you have a drink containing alcohol: never AUDIT-C Alcohol total score: 0 Non-prescribed substance use: denies use Caffeine: Yes (Diet Coke, 3 cans/day) service: No Exam Narrative: Exam Narrative: Constitutional: Well-developed, well-nourished, no acute distress. HEENT: Normocephalic, atraumatic. Neck: Normal range of motion. Nontender. Supple. Heart: Regular. No murmurs. Normal rate. Intact distal pulses. Lungs: Clear to auscultation. No chest discomfort. No wheezes, rhonchi, or rales. Abdomen: Normal bowel sounds. Nontender. No rebound tenderness. Genitalia: Deferred. Back: No midline tenderness. Normal range of motion. Extremities: No pain when log-rolling either leg or when stressing her pelvis. She does show some sign of discomfort in her left hip region. Skin: Intact. No rash. Warm. No erythema or pallor. Neurologic: No altered sensation. No weakness. Alert and oriented. Psychiatric: No suicidality. No anxiety or depression. No insomnia. Nursing notes and vitals signs are reviewed. Const: Vital Signs, click to edit/add: Vital Signs - 24 hr 08/28/23 13:27 08/28/23 14:39 08/28/23 15:00 Temperature 97.6 F Pulse Rate 70 72 Pulse Rate [Pulse Oximeter] 80 Respiratory Rate 18 Blood Pressure Blood Pressure [Ri ght Upper Arm] 148/88 H Pulse Oximetry 96 94 86 L Oxygen Delivery Me thod Room Air 08/28/23 15:03 08/28/23 15:30 08/28/23 15:32 Temperature Pulse Rate 72 77 Pulse Rate [Pulse Oximeter] Respiratory Rate Blood Pressure 158/48 H 142/66 H Blood Pressure [Ri ght Upper Arm] Pulse Oximetry 93 95 Oxygen Delivery Me thod Course Vital Signs Vital signs: Initial Vital Signs Temperature 97.6 F 08/28/23 13:27 Temperature Source Temporal Artery Scan 08/28/23 13:27 Pulse Rate 80 08/28/23 13:27 Pulse Rhythm Regular 08/28/23 13:27 Respiratory Rate 18 08/28/23 13:27 Blood Pressure 148/88 H 08/28/23 13:27 Blood Pressure Mean 108 H 08/28/23 13:27 Blood Pressure Position Sitting 08/28/23 13:27 Pulse Oximetry 96 08/28/23 13:27 Oxygen Delivery Method Room Air 08/28/23 13:27 Vital Signs Temperature 97.6 F 08/28/23 13:27 Pulse Rate 80 08/28/23 13:27 Respiratory Rate 18 08/28/23 13:27 Blood Pressure 148/88 H 08/28/23 13:27 Pulse Oximetry 96 08/28/23 13:27 Oxygen Delivery Method Room Air 08/28/23 13:27 Temperature 97.6 F 08/28/23 13:27 Pulse Rate 77 08/28/23 15:32 Respiratory Rate 18 08/28/23 13:27 Blood Pressure 142/66 H 08/28/23 15:32 Pulse Oximetry 95 08/28/23 15:32 Oxygen Delivery Method Room Air 08/28/23 13:27 Medications Administered Medications: Discontinued Medications Generic Name Dose Route Start Last Admin Trade Name Freq PRN Reason Stop Dose Admin Hydrocodone Bitart/Acetaminophen 1 tab 08/28/23 14:35 08/28/23 14:45 Hydrocodone-Acetamin 5-325 Mg 1 Tab PO 08/28/23 14:36 1 tab ONCE ONE Administration Lorazepam 0.5 mg 08/28/23 15:33 08/28/23 15:38 Lorazepam 0.5 Mg Tablet PO 08/28/23 15:34 0.5 mg ONCE ONE Administration Ondansetron HCl 4 mg 08/28/23 15:20 08/28/23 15:24 Ondansetron Odt 4 Mg Tab PO 08/28/23 15:21 4 mg ONCE ONE Administration Medical Decision Making MDM Narrative Medical decision making narrative: This 77-year-old female comes in with her who is concerned about injuries from a fall or actually 2 falls that occurred earlier today. Her states that her mind is declining significantly with dementia. He also states that she is taking very short steps and seems to be more weak in general. CT imaging of the head, C-spine, and x-ray images of the hip and pelvis show no acute findings. Additionally lab results are not indicating any findings to explain these symptoms. She did receive an oral tablet of [place] and later Ativan for symptomatic relief. She was able to get up and ambulate and benefited with the use of a walker. She does have a walker that she can use at home. She is okay to be discharged home. The patient's is good with this plan. He states that she has done well with taking Tylenol in the past when she is complaining of some pain. Lab Data Labs: Lab Results 08/28/23 Range/Units 13:53 WBC 8.47 (4.50-11.00) K/uL RBC 4.14 (4.00-5.20) m/uL Hgb 10.6 L (12.0-16.0) gm/dL Hct 33.9 (33.0-51.0) % MCV 82 (80-100) fL MCH 26 (26-34) pg MCHC 31 L (32-36) gm/dL RDW Coeff of Mp 15.3 (11.5-15.5) % Plt Count 239 (140-440) K/uL Neut % (Auto) 86.7 H (42.0-72.0) % Lymph % (Auto) 7.1 L (20-44) % [place] % (Auto) 3.9 (0.0-11.0) % Eos % (Auto) 1.4 (0.0-7.0) % Baso % (Auto) 0.1 (0.0-3.0) % Neut # (Auto) 7.30 H (1.7-7.0) K/uL Lymph # (Auto) 0.60 L (0.90-2.90) K/uL [place] # (Auto) 0.30 (0.00-0.90) K/UL Eos # (Auto) 0.12 (0.00-0.50) K/uL Baso # (Auto) 0.01 (0.00-0.30) K/uL Abs Immat Gran (auto) 0.07 (0.00-0.30) K/uL Imm/Tot Granulo (auto) 0.8 % Sodium 131 L (135-149) mmol/L Potassium 5.0 (3.6-5.1) mmol/L Chloride 98 (96-114) mmol/L Carbon Dioxide 23 (20-32) mmol/L Anion Gap 10 (7-15) mEq/L BUN 35 H (7-30) mg/dL Creatinine 1.2 (0.5-1.5) mg/dL Estimated Creat Clear 30.56 Estimated GFR 46 ml/min Glucose 122 H (60-115) mg/dL Calcium 9.6 (8.4-10.6) mg/dL Imaging Data CT scan - head: Radiologist's impression: No sign of acute injury and no change from the prior exam. CT Cervical Spine: Radiologist's impression: 1. No sign of acute injury. 2. Multilevel degenerative spondylosis. XR R Hip: Radiologist's impression: Findings/Impression: Bones: No definite evidence of fracture. Joint spaces: No dislocation. Soft tissues: Atherosclerosis. Mild heterotopic ossification adjacent to the right greater trochanter. Discharge Plan Discharge Clinical Impression: Contusion of hip, Dementia Patient Disposition: Home w/ Parent or Adult Condition: Stable Additional Instructions: Continue current plans. Follow up with primary MD for ongoing management. Return if worsening. Prescriptions: No Action aspirin 81 mg tablet,delayed release (DR/EC) 81 mg PO QDAY Hold Instructions: Resume on 11/24/22. Resume aspirin 81 mg daily upon completion of the aspirin 81 twice daily order per your orthopedic surgeon. cholecalciferol (vitamin D3) 50 mcg (2,000 unit) capsule 50 mcg PO QDAY glimepiride 4 mg tablet 4 mg PO QDAY Tradjenta 5 mg tablet 5 mg PO QDAY lisinopril 10 mg tablet 10 mg PO QDAY metformin 500 mg tablet 1,000 mg PO BID pravastatin 40 mg tablet 40 mg PO QDAY ropinirole 2 mg tablet 2 mg PO QDAY PRN venlafaxine 150 mg capsule,extended release 24hr 150 mg PO DAILY cephalexin 500 mg capsule 2,000 mg PO ONCE Qty: 4 3RF Follow Up/Referrals: Juju Mathews [Primary Care Provider] - [facility] Inst[facility]
[2023-08-28 14:13] LABS: Hematocrit 33.9 % (33.0-51.0); Hemoglobin* 10.6 gm/dL (12.0-16.0); Mean Corpuscular HGB Conc 31 gm/dL (32-36); Mean Corpuscular Hemoglobin 26 pg (26-34); Mean Corpuscular Volume 82 fL (80-100); Neutrophils Percent Auto 86.7 % (42.0-72.0); Platelet Count* 239 K/uL (140-440); RDW Coefficient of Variation % 15.3 % (11.5-15.5); Red Blood Count 4.14 m/uL (4.00-5.20); White Blood Count* 8.47 K/uL (4.50-11.00)
[2023-08-28 14:14] LABS: Basophils Absolute Auto 0.01 K/uL (0.00-0.30); Basophils Percent Auto 0.1 % (0.0-3.0); Eosinophils Absolute Auto 0.12 K/uL (0.00-0.50); Eosinophils Percent Auto 1.4 % (0.0-7.0); Immature Granulocytes Abs Auto 0.07 K/uL (0.00-0.30); Immature Granulocytes Pct Auto 0.8 %; Lymphocytes Percent Auto 7.1 % (20-44); Monocytes Percent Auto 3.9 % (0.0-11.0)
[2023-08-28 14:16] LABS: Slide Review Reflex No
[2023-08-28 14:21] LABS: Chloride* 98 mmol/L (96-114); Sodium* 131 mmol/L (135-149)
[2023-08-28 14:24] LABS: Anion Gap 10 mEq/L (7-15); Blood Urea Nitrogen* 35 mg/dL (7-30); Carbon Dioxide* 23 mmol/L (20-32); Creatinine* 1.2 mg/dL (0.5-1.5); Est. Creatinine Clearance* 30.56; Estimated Glomerular Filt Rate 46 ml/min
[2023-08-28 14:25] LABS: Calcium* 9.6 mg/dL (8.4-10.6); Glucose* 122 mg/dL (60-115)
[2023-08-28] MEDS: HYDROCODONE-ACETAMIN 5-325 MG 1 TAB PO (14:45)
[2023-08-28] MEDS: ONDANSETRON ODT 4 MG TAB PO (15:24)
[2023-08-28] MEDS: LORazepam 0.5 MG TABLET PO (15:38)
== END 2023-08-28 16:33 | disposition home or self-care (01) ==
PROVIDERS: Emergency Provider Emergency Medicine Emergency Medical Services; PCP Internal Medicine
DX: S70.02XA Contusion of left hip, initial encounter (principal); F03.90 Unspecified dementia, unspecified severity, without behavioral disturbance, psychotic disturbance, mood disturbance, and anxiety
CPT/HCPCS: 36415; 70450; 72125; 73502; 80048; 85025; 95992; 99284; A9270

== ENCOUNTER 2024-09-13 16:59 | Inpatient (IN) | payer OTHER, SELFPAY ==
[2024-09-13] VITALS (15 sets, daily range): BP systolic 114–137; BP diastolic 51–105; PULSE 63–79; RESP 16–18; TEMP 36.4–36.9; O2SAT 96–100; BMI 26.6
--- OUTSIDE RECORDS SUMMARY | 2024-09-13 17:02 | XMS_ITS | Continuity of Care Document ---
Author Name N[facility]IN User [facility] Address Unknown Organization Unknown Address Unknown Procedures FILTER APPLIED:Only known Procedures with Onset Date within the last 5 years Procedure Date Procedure Provider Additiona l Information Status EMERGENCY DEPT VISIT MOD MDM (70080) Completed ROUTINE VENIPUNCTURE (55082) Completed CT HEAD/BRAIN W/O DYE (50757) Completed COMPLETE CBC W/AUTO DIFF WBC (37770) Completed X-RAY EXAM HIP UNI 2-3 VIEWS (13863) Completed METABOLIC PANEL TOTAL CA (27334) Completed CT NECK SPINE W/O DYE (47558) Completed Encounters FILTER APPLIED:Only known Encounters with Admission Date within the last 5 years Encounter Location Admission Discharge Billing Code Heel Seat [facility]
--- OUTSIDE RECORDS SUMMARY | 2024-09-13 17:02 | XMS_ITS | Clinical Summary ---
Author Organization [employer] [facility] Address [place], [place] [address] Care Team Providers Care Print Finishing Worker Name Role Phone Bill Miranda MD Unavailable [phone] Juju Mathews DO Primary Care Provider Allergies Active Allergy Reactions Criticality Noted Date Comments Pioglitazone Hcl Myalgia Medium 08/10/2011 Leg cramps Cats (Fur, Dander, Saliva) Runny Nose Medium 7 Penicillins Rash 07/20/2006 Pioglitazone *Unknown,Rash Medium 08/10/2011 Leg cramps, myalgia Simvastatin Myalgia Medium 08/10/2010 Medications aspirin (ECOTRIN) 81 mg enteric coated tablet Patient reported. One tab daily. 0 07/08/20 14 Active VITAMIN D-3 2,000 unit capsule One softgel daily. 05/24/20 15 Active fluticasone (50 mcg per actuation) nasal solution (FLONASE)Indicatio ns:Chronic rhinitis Inhale 1 Gratis into both nostrils once daily. 1 Bottle 11 07/28/20 16 Active blood-glucose meterIndications:T ype 2 diabetes mellitus without complication, without long-term current use of insulin (HC) Dispense meter, test strips, lancets covered by pt ins. E11.65 NIDDM type II, uncontrolled - Test 3 times/day, Reason: High A1C 1 Device 05/01/20 18 Active lancetsIndications :Type 2 diabetes mellitus without complication, without long-term current use of insulin (HC) Test 3 times per day. 300 Each 05/01/20 18 Active blood sugar diagnostic (ONETOUCH ULTRA TEST) stripIndications:T ype 2 diabetes mellitus with diabetic neuropathy, without long-term current use of insulin (HC) Dispense item covered by pt ins. E11.65 NIDDM type II, uncontrolled - Test 3 times/day, Reason: High A1C 300 Strip 3 05/03/20 18 Active clindamycin 1% (CLEOCIN-T) 1 % gelIndications:Chr onic folliculitis Apply topically to affected area(s) two times daily. Dispense in 60g tubes, 30 day supply, Insurance needs to say 120 g ordered 120 g 2 10/16/19 23 Active rOPINIRole (Requip) 2 mg tabletIndications: Restless legs syndrome (RLS) Take 1 Tablet (2 mg) by mouth at bedtime if needed (restless legs). Take up to 8 tabs per day by mouth in divided doses. 90 Tablet 3 01/27/20 23 Active cephalexin (KEFLEX) 500 mg capsule TAKE 4 CAPSULES BY MOUTH 1 HOURS BEFORE APPOINTMENT 02/29/20 23 Active clotrimazole-betam ethasone cream (LOTRISONE) 1-0.05 % creamIndications:T inea pedis of left foot Apply topically to affected area(s) two times daily. 45 g 1 11/02/19 24 Active Walker - 4 wheelsIndications: 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 behavioral disturbance (HC),Frequent falls With Brakes and a seat For home use. Length of need: lifetime. 1 Each 11/02/19 24 Active glimepiride (AMARYL) 4 mg tabletIndications: Type 2 diabetes mellitus with diabetic neuropathy, without long-term current use of insulin (HC) TAKE 1 TABLET BY MOUTH TWICE DAILY 180 Tablet 3 11/02/19 24 Active linaGLIPtin (Tradjenta) 5 mg tabIndications:Typ e 2 diabetes mellitus with diabetic neuropathy, without long-term current use of insulin (HC) Take 1 Tablet (5 mg) by mouth once daily. 90 Tablet 3 11/02/19 24 Active metFORMIN (GLUCOPHAGE) 500 mg tabletIndications: Type 2 diabetes mellitus with diabetic neuropathy, without long-term current use of insulin (HC) Take 1 Tablet (500 mg) by mouth two times daily with meals. 180 Tablet 3 11/02/19 24 Active omeprazole (PRILOSEC) 40 mg Delayed-Release capsuleIndications :Chronic GERD Take 1 Capsule (40 mg) by mouth once daily before a meal. 90 Capsule 3 11/02/19 24 Active pravastatin (PRAVACHOL) 40 mg tabletIndications: Hyperlipidemia, unspecified hyperlipidemia type Take 1 Tablet (40 mg) by mouth at bedtime. 90 Tablet 3 11/02/19 24 Active venlafaxine (EFFEXOR XR) 150 mg Extended-Release capsuleIndications :Depression, unspecified depression type Take 1 Capsule (150 mg) by mouth once daily with evening meal. 90 Capsule 3 11/02/19 24 Active lisinopriL (PRINIVIL; ZESTRIL) 5 mg tabletIndications: Essential hypertension Take 1 Tablet (5 mg) by mouth once daily. 90 Tablet 3 11/03/19 24 Active Active Problems Problem Noted Date Diagnosed Date Stage 3a chronic kidney disease 10/16/2022 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 behavioral disturbance 07/06/2022 Traumatic tear of right rotator cuff 07/12/2021 Anemia of unknown etiology 06/13/2021 Recurrent major depressive disorder 12/30/2020 Type 2 diabetes mellitus wit h diabetic neuropathy, without long-term current use of insulin 01/30/2020 Shoulder impingement syndrome, right 01/07/2018 Lichen planus 01/15/2017 Overview (01/15/2017): Significant mouth lesions - seeing a specialist. Rosacea 11/21/2016 Primary osteoarthritis of left hip 07/10/2016 Osteopenia 09/17/2014 Overview (09/17/2014): DEXA done 09/2014, repeat in 5-7 years. Low fracture risk. Depression 08/25/2014 HTN (hypertension) 08/25/2014 Chronic sinusitis 07/08/2014 Multiple lung nodules 05/26/2014 Overview (05/26/2014): Calcified granulomas on CT scan 05/2014. Right thyroid nodule 05/26/2014 Overview (11/13/2017): [address] scan in 05/2014. U/S in 10/2017 showed stable right nodules. No need to repeat testing. Osteoarthritis 11/19/2012 Prolapse of female genital organs 02/01/2012 Neuropathy 03/09/2010 Hyperlipidemia FIBROMYALGIA Restless legs syndrome (RLS) Esophageal reflux Resolved Problems Problem Noted Date Diagnosed Date Resolved Date Patient nonadherence 07/14/2019 021 Bilateral leg edema 04/11/2019 12/30/19 Rotator cuff tear, left 11/25/201812/10 Strain of left quadriceps tendon 01/07/2018 2020 Trochanteric bursitis of left hip 01/05/2017 2020 Chronic left hip pain 07/10/20162020 Onychomycosis 03/26/2015 03/12/2020 Acute atopic conjunctivitis 01/06/2013 10/24/2017 Anemia, unspecified 05/14/2012 08/10/20 20 FAMILY HX OF MALIG NEOPLSM OF GI TRACT 02/05/2009 03/12/2020 FAMILY HX OF MALIG NEOPLSM OF GI TRACT 02/05/2009 02/08/2009 FAMILY HX OF MALIG NEOPLSM OF GI TRACT 02/05/2009 02/08/2009 Family history of malignant neoplasm of gastrointestinal tract 03/24/2008 02/08/2009 Symptomatic menopausal or fe male climacteric states 03/12/2020 Overview (11/05/2006): Clonidine helps Immunizations Name Administration Dates Next Due AMB Influenza, IIV3 (Age >=3 years)(Flu Clinic Only) 06/19/2013,06/19/2011,07/01/2008 COVID-19 vaccine (Beautified 30mcg/0.3mL) PF, MDV 06/13/2021,12/07/2020,11/16/2020 DTaP 08/10/2011 Influenza Virus, Unspecified 07/05/2016 Influenza, High-dose Inactivated 018,06/19/2017,07/05/2016,2014,06/12/2014 Influenza, IIV3 (Age 6-35 mos) 06/19/2011 Influenza, IIV3 (Age >=3 years) 06/19/20 13,06/13/2012,06/25/2010,2008,07/01/2008,07/02/2007,07/16/2006,1 ,07/13/2004,07/13/2003 Influenza, IIV4 05/11/2020 Influenza, Inactivated AIIV4 (Age 65+ Years) Preserv Free 07/06/2022,06/13/2021 Influenza, Inactivated IIV3 (Age 65+ Years) Preserv Free 05/25/2019,07/03/2018 Pneumococcal Poly,23-Valent (Pneumovax) 08/10/2011 Pneumococcal conj 13-Valent (Prevnar 13) 07/28/2016 Td (Age >=7 Years) 10/12/1997 Tdap 08/10/2011 Zoster (Shingrix-RZV, recombinant) 07/06/2022, Zoster (Zostavax-ZVL, live) 11/13/2013 Family History Medical History Relation Name Comments Cancer Daughter skin Cancer-breast Mother 49 yrs old Diabetes Paternal Aunt Allergies Sister 4 Cancer-colon Sister 5 dx at age 62 yr s old Anesthesia Problem No Family History Cancer-ovarian No Family History Cancer-prostate No Family History Relation Name Status Comments Daughter Father Mother Paternal Aunt Sister 1 (Age 62) colon canc er Sister 2 Alive Sister 3 Alive Sister 4 Sister 5 Social History Tobacco Use Types Packs/Day Years Used Date Smoking Tobacco: Former Cigarettes 1 12 0 09/10/1963 - 09/10/1975 Smokeless Tobacco: Never Tobacco Cessation:Counseling Given: Yes Alcohol Use Standard Drinks/Week Comments No 0 (1 standard drink = 0.6 oz pur e alcohol) [facility] Utilities Answer Date Recorded Do you have trouble paying f or utilities (for example, heat, electricity, water, phone)? Yes 05/08/2024 PHQ-2 Answer Date Recorded PHQ-2 TOTAL SCORE 0 11/02/2023 Social Connections Answer Date Recorded Do you often feel lonely or isolated from those around you? 0 05/08/2024 Financial Resource Strain Answer Date R ecorded Difficulty of Paying Living Expenses 3 05/08/2024 Difficulty of Paying Living Expenses Not on file 05/08/2024 Food Insecurity Answer Date Recorded Do you worry your food will run out before you are able to buy more? 1 05/08/2024 Transportation Needs Answer Date Record ed Does lack of transportation keep you from medica l appointments? 1 05/08/2024 Does lack of transportation keep you from work, meetings or getting things that you need? 1 05/08/2024 Housing Stability Answer Date Recorded What is your housing situation today? 1 05/08/2024 Comments No Sex and Gender Information Value Date Recorded Sex Assigned at Not on file Legal Sex Female 5:23 AM SENIOR TECHNICAL MANAGER Gender Identity Not on file Sexual Orientation Not on file Occupation Industry Job Start Date Job End Date Not on file Not on file Not on file Not on file Obstetrics History Para Term AB IAB SAB Ectopic Multiple Livin g Live Births 2 2 2 Date Outcome GA Total Labor Labor/2nd/3rd Weight Sex Type Anes PTL Alda A1 A5 Name Clin Para M Para F Last Filed Vital Signs Vital Sign Reading Time Taken Comments Blood Pressure 112/62 05/08/2024 2:51 PM CDT Pulse 62 05/08/2024 2:51 PM CDT Temperature 36.8 C (98.2 F) 04/05/2022 3:22 PM CDT Respiratory Rate 20 05/08/2024 2:51 PM CDT Oxygen Saturation 99% 05/08/2024 2:51 PM CDT Inhaled Oxygen Concentration - - Weight 71.1 kg (156 lb 11.2 oz) 05/08/2024 2:51 PM CDT Height 154.9 cm (5' 1) 11/02/2023 10:4 9 AM SENIOR TECHNICAL MANAGER Body Mass Index 29.61 11/02/2023 10:49 AM SENIOR TECHNICAL MANAGER Plan of Treatment Upcoming Encounters Date Type Department Care Team (Late st Contact Info) Description 10/30/2024 2:40 PM SENIOR TECHNICAL MANAGER Office Visit [facility] [address] [place] [address] Juju Mathews, DO [address] [place] [address] Health Maintenance Due Date Last Done Comments RSV vaccine for adults or (1 - 1-dose 75+ series) 12/30/2019 Tetanus booster 08/10/2021 08/10/2011, 10/12/1997 Medicare Wellness for age 65+ 07/07/2023, 06/13/2021, 08/05/2018 COVID-19 vaccine series ( season) 2024 06/13/2021, 12/07/2020, 11/16/2020 Influenza for age 65+ 05/11/2024 07/06/2022 , 06/13/2021, 05/11/2020, Additional history exists BMI (ht and wt on same day) for age 18+ 11/02/2024 11/02/2023, 01/26/2023, 10/16/2022, Additional history exists Depression screening for age 12+ 11/05/2024 11/05/2023, 11/02/2023, 07/10/2022, Additional history exists Tdap Completed 08/10/2011 DEXA/DXA scan for age 65+ Completed 09/15/2014 Pneumococcal series for age 50+ Completed 6, 08/10/2011 Hepatitis C screening for ag e 18-79 Completed 2020 Zoster (shingles) series for age 50+ Completed 07/06/2022, 02/28/2022, 11/13/2013 Medical Devices Implanted Type Area Linux Programmer Device Identifier Shelf Expiration Date Model / Serial / Lot Sys Tissue Fixation - [id number] Implanted:Qty: 1 on 01/31/2012 at [facility] [employer] [id number] / / [id number] Sling Miniarc - [id number] Implanted:Qty: 1 on 01/31/2012 at [facility] [employer] [id number] / / [id number] Procedures Procedure Name Priority Date/Time Associated Diagnosis Comments ANTI HCV Add On 2020 1:21 PM CDT Need for hepatitis C screening test XR DXA BONE DENSITY 2 SITES AXIAL Routine 09/15/2014 9:07 AM SENIOR TECHNICAL MANAGER Postmenopausal from Last 3 Months or Most Recently Relevant to Health Maintenance Results * ANTI HCV (2020 1:21 PM CDT) HEPATITIS C ANTIBODY Non-React alo Non-React alo 2020 8:59 PM CDT [facility] Comment:Antibodies to HCV no t detected; does not exclude the possibility of exposure to HCV. Blood BLOOD SPECIMEN / Unknown Venipuncture / Unknown 2020 1:21 PM CDT 2020 1:28 PM CDT us Ana María Carl MD SEND OUTS Final Res ult [facility] [address] [place] [address], [place] * (ABNORMAL) XR DXA BONE DENSITY 2 SITES (09/15/2014 9:07 AM SENIOR TECHNICAL MANAGER) Anatomical Region Laterality Modality Spine, HIPS, HIPL, HIPR Bone Den sitometry Narrative 09/17/2014 9:49 AM SENIOR TECHNICAL MANAGER Please see scanned document for results of this study. Procedure Note Ana María Carl MD - 09/17/2014 Please see scanned document for results of this study. us Juju Mathews DO DEXA Final Result from Last 3 Months or Most Recently Relevant to Health Maintenance Insurance [place] [id number] MEDICARE PART A HB ONLY MEDICARE PART B HB ONLY MEDICARE PART A HB ONLY MEDICARE ADVANTAGE [place] [id number] COMMERCIAL Advance Directives Documents on File Type Date Recorded Patient Corporate Safety Director Expl anation Healthcare Directive 11/04/2021 1:25 PM * Full Code (Latest Code Status on File) Date Activated Date Inactivated Comments 02/20/2018 7:35 AM 02/21/2018 2:35 AM * Full Code Date Activated Date Inactivated Comments 01/30/2012 12:20 PM 02/01/2012 3:47 PM Care Teams Print Finishing Worker Relationship Specialty Start Date End Date Juju Mathews DO [address] [place] [id number] PCP - General Internal Medicine 12/28/21 Bill Miranda MD [address] [address] Neurology 12/29/20
--- NOTE | 2024-09-13 17:21 | ED.GENADULT ---
HPI - General Adult General Time Seen by Provider: 17:22 Date Seen: 09/13/24 Chief complaint: Fall/Minor Trauma Stated complaint: Disoriented, drowsy Time Seen by Provider: 09/13/24 17:04 Source: patient, EMS, RN notes reviewed and old records reviewed Mode of arrival: EMS Limitations: no limitations History of Present Illness HPI narrative: This 78-year-old female is brought in by EMS from her home where she resides with her . She reportedly has had multiple falls over the last few days per EMS and it is in discernible whether not she has hit her head. EMS noted that the did not have much information for them. Patient had wet the EMS bed on arrival, the did obtain a cathed specimen. Her blood sugar was 109 per EMS. Patient initially stated she had a slight headache when asked by nursing staff but by the time I see her she has no pain complaints. told EMS that she is usually alert and oriented but has not taken her meds in 3 days. She reportedly was confused today, sleeping. Her is in the room when I go to see the patient. He states she has just been sleeping and unable to stand the last couple days. He has not been able to get her pills into her. He sets up all of her pills. They see Dr. Mathews at [facility]. He has not noted fevers. He has not noted vomiting or diarrhea. He wonders if there is a way to diagnose dementia as he notes she has been extremely forgetful the last couple years. He states she does not do anything around the house anymore, he does all the cooking, laundry, cleaning. He does whisper to me so she can not hear that she does sometimes get mean. He reportedly did get a lift from someone today to help with assisting. She is reportedly not walking anymore the last couple days. She is denying pain anywhere, not noted to be coughing, no fevers noted. He is concerned about muscle cramps that she will get, when asked chronicity of these, have probably been around at least 6 months. She does have a restless leg syndrome diagnosis but he is describing muscle cramps subtle come. He will sometimes give her a Tylenol and that will help after while. He notes she really has not eaten anything in the last couple days, has not been able to get pills in her. He states she really just has no strength in her legs, can not even really stand up the last couple of days. In review of her chart, she was recently into the orthopedic office on August 22 with complaint of right shoulder pain after fall. She was found to have a contusion to the right shoulder but no other traumatic change. She has had bilateral shoulder replacement, right in 2020, left 2022. Related Data Home Medications ?Medication ?Instructions ?Recorded ?Confirmed aspirin 81 mg tablet,delayed 81 mg PO QDAY 10/02/22 09/14/24 release glimepiride 4 mg tablet 4 mg PO QDAY 10/02/22 09/14/24 linagliptin 5 mg tablet (Tradjenta) 5 mg PO QDAY 10/02/22 09/14/24 metformin 500 mg tablet 1,000 mg PO BID 10/02/22 09/14/24 pravastatin 40 mg tablet 40 mg PO QDAY 10/02/22 09/14/24 ropinirole 2 mg tablet 2 mg PO HS PRN 10/02/22 09/14/24 venlafaxine 150 mg 150 mg PO DAILY 10/02/22 09/14/24 capsule,extended release 24 hr lisinopril 5 mg tablet 5 mg PO DAILY 09/14/24 09/14/24 Allergies Allergy/AdvReac Type Severity Reaction Status Date / Time pioglitazone (From Actos) Allergy Unknown Verified 08/22/24 09:45 simvastatin Allergy Unknown Verified 08/22/24 09:45 penicillin V Allergy Rash Verified 08/22/24 09:45 Review of Systems Status of ROS: Reports: unobtainable due to mental status Narrative: Patient denies multitude of symptoms on HPI but question her validity. [facility] Medical History (Updated 09/14/24 @ 15:13 by Oliver Sánchez MD) Dementia ?F03.90 - Unspecified dementia, unspecified severity, without behavioral disturbance, psychotic disturbance, mood disturbance, and anxiety (ICD-10) Right thyroid nodule ?E04.1 - Nontoxic single thyroid nodule (ICD-10) Symptomatic menopausal or female climacteric states ?N95.1 - Menopausal and female climacteric states (ICD-10) Cystic acne ?L70.0 - Acne vulgaris (ICD-10) Trochanteric bursitis of left hip ?M70.62 - Trochanteric bursitis, left hip (ICD-10) Strain of left quadriceps tendon ?S76.112A - Strain of left quadriceps muscle, fascia and tendon, initial encounter (ICD-10) Impingement syndrome of right shoulder ?M75.41 - Impingement syndrome of right shoulder (ICD-10) Rotator cuff tear, left ?M75.102 - Unspecified rotator cuff tear or rupture of left shoulder, not specified as traumatic (ICD-10) Rosacea ?L71.9 - Rosacea, unspecified (ICD-10) Stage 3a chronic kidney disease ?N18.31 - Chronic kidney disease, stage 3a (ICD-10) Multiple lung nodules ?R91.8 - Other nonspecific abnormal finding of lung field (ICD-10) Prolapse of female genital organs ?N81.9 - Female genital prolapse, unspecified (ICD-10) 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 behavioral disturbance ?F03.B0 - Unspecified dementia, moderate, without behavioral disturbance, psychotic disturbance, mood disturbance, and anxiety (ICD-10) Neuropathy ?G62.9 - Polyneuropathy, unspecified (ICD-10) Primary osteoarthritis of left hip ?M16.12 - Unilateral primary osteoarthritis, left hip (ICD-10) Osteopenia ?M85.80 - Other specified disorders of bone density and structure, unspecified site (ICD-10) Osteoarthritis ?M19.90 - Unspecified osteoarthritis, unspecified site (ICD-10) Anemia of unknown etiology ?D64.9 - Anemia, unspecified (ICD-10) Chronic sinusitis ?J32.9 - Chronic sinusitis, unspecified (ICD-10) Type 2 diabetes mellitus with diabetic neuropathy, without long-term current use of insulin ?E11.40 - Type 2 diabetes mellitus with diabetic neuropathy, unspecified (ICD-10) Lichen planus ?L43.9 - Lichen planus, unspecified (ICD-10) Health care directive on file (10/26/21) ?Z78.9 - Other specified health status (ICD-10) RLS (restless legs syndrome) ?G25.81 - Restless legs syndrome (ICD-10) PONV (postoperative nausea and vomiting) ?R11.2 - Nausea with vomiting, unspecified (ICD-10) ?Z98.890 - Other specified postprocedural states (ICD-10) Fibromyalgia ?M79.7 - Fibromyalgia (ICD-10) Depression ?F32.A - Depression, unspecified (ICD-10) Folliculitis ?L73.9 - Follicular disorder, unspecified (ICD-10) Incontinence of urine ?R32 - Unspecified urinary incontinence (ICD-10) GERD (gastroesophageal reflux disease) ?K21.9 - Gastro-esophageal reflux disease without esophagitis (ICD-10) Elevated cholesterol ?E78.00 - Pure hypercholesterolemia, unspecified (ICD-10) Hypertension ?I10 - Essential (primary) hypertension (ICD-10) Surgical History (Updated 09/13/24 @ 21:32 by Sofya Fragoso MD) History of carpal tunnel release ?Z98.890 - Other specified postprocedural states (ICD-10) H/O myomectomy ?Z98.890 - Other specified postprocedural states (ICD-10) 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) ?Z96.611 - Presence of right artificial shoulder joint (ICD-10) Status post reverse arthroplasty of left shoulder (10/24/22) ?Z96.612 - Presence of left artificial shoulder joint (ICD-10) H/O arthroscopy of shoulder ?Z98.890 - Other specified postprocedural states (ICD-10) History of bladder suspension procedure ?Z98.890 - Other specified postprocedural states (ICD-10) ?Z87.448 - Personal history of other diseases of urinary system (ICD-10) Family History (Updated 09/13/24 @ 21:06 by Sofya Fragoso MD) Mother Cancer Breast cancer Father Brain cancer Sister Colon cancer Daughter Skin cancer Aunt Diabetes Social History (Updated 09/13/24 @ 21:26 by Sofya Fragoso MD) Narrative: She is and [place] in [place], [place] with her . Denies alcohol or tobacco use. is not available at this time to review code status. What is your current living situation?: I presently have a place to live Problems where you live: unable to answer Problems where you live details: N/A In the past 12 months, utilities in danger of being shut off: unable to answer In past 12 months, lack of transportation kept you from medical appts, meetings, work, or getting things needed for daily living: unable to answer In the past 12 mos, have been you worried that your food would run out before you had money to buy more?: unable to answer In the past 12 mos, the food you bought just didn't last and you didn't have money to buy more?: unable to answer Highest level of school completed/degree received: don't know Smoking Status: Never smoker Do you use any of these nicotine containing products: None Second hand tobacco smoke exposure: No How often do you have a drink containing alcohol: never How often do you have six or more drinks on one occasion: Never AUDIT-C Alcohol total score: 0 Non-prescribed substance use: denies use Caffeine: Yes (Diet Coke, 3 cans/day) How often does anyone, including family, friends and others, physically hurt you: unable to answer How often does anyone, including family, friends and others, insult or talk down to you: unable to answer How often does anyone, including family, friends and others, threaten you with harm: unable to answer How often does anyone, including family, friends and others, scream or curse at you: unable to answer service: No Exam Const: Vital Signs, click to edit/add: Vital Signs - 24 hr 09/14/24 03:11 09/14/24 07:00 09/14/24 07:00 Temperature 97.9 F 97.0 F L Pulse Rate Pulse Rate [Right Pulse Oximeter] 60 66 Respiratory Rate 18 16 Blood Pressure [Ri ght Arm] 143/65 H 161/82 H Pulse Oximetry 98 100 100 Oxygen Delivery Me thod Room Air Room Air Room Air 09/14/24 07:00 09/14/24 07:00 09/14/24 11:00 Temperature 97.6 F Pulse Rate 68 Pulse Rate [Right Pulse Oximeter] 66 66 Respiratory Rate 16 16 Blood Pressure [Ri ght Arm] 141/64 H Pulse Oximetry 99 Oxygen Delivery Me thod Room Air This 78-year-old female is lying in the bed in exam room 5. She is alert and interactive, very disheveled. Is not very conversive but will answer questions with basically yes and no. What speech she does say is succinct. Pupils are equal round reactive, sclera clear, symmetrical facial function. Lungs are clear anteriorly an at the axilla, no wheezing or crackles, no tachypnea. CV regular rate and rhythm, no murmur heard normal S1-S2, no S3-S4. Abdomen is soft but obese, , do not feel any organomegaly or masses, certainly nontender anywhere. She has no lower extremity edema, does have some mild erythema on the feet and some scaling with what seems to be possibly a dermatitis, is not warm, not weeping, not looking to be cellulitic. She will move her arms, move her legs. The patient has no idea what year it is, ask her multiple times in she really will not provide any answer. She cannot tell me what year she is born. She does know that she has been brought to [facility]. She has no idea what month it is. She knows that Sandro is going to be the president. Documenting provider has reviewed patient's vital signs: yes Course Course ED Course: Will do head imaging, cervical spine imaging with CT to rule out traumatic pathology. Patient certainly could have infectious etiology, metabolic. This could be progression of dementia. Will do full complement of labs, looking for all these possibilities. She also get a chest x-ray. Right now she is hemodynamically stable, afebrile. Reevaluation(s) Time of Reevaluation #1: 19:15 Reevaluation #1: Reviewed with patient and her that the plan is for observing her overnight at this time. Her triple viral swab is still pending. As I am talking to her , she is independently lifting each leg off the bed, lifting them into the air. She does not seem uncomfortable just seems to be doing this. She will smile at me. He does bring up the muscle cramps again, her inability to stand and walk that seemed to happen abruptly. I have reviewed with him that were still awaiting the triple viral swab. We can see significant profound changes in mental status with these viruses. They have certainly been known to make many elderly people weak. We will just have to see. Did review with him her CK is mildly elevated and that can be harmful to kidneys if it continues to go up. She will be starting IV fluids. Will do a lab add on for magnesium just to ensure no concerning depletion of this, this certainly could affect muscle cramping. Consultations Consultation #1: Have spoken with Dr. Fragoso, reviewed patient's case. Will start some gentle hydration with normal saline at 75 mL an hour. She reviewed with me that she does typically start some maintenance fluids until she knows that the CK is certainly not going up. This patient's CK is not critical at this time but is certainly high. Will await the triple viral swab and contact her back once we have this. We do not have a complete explanation for patient's altered state that seems more acute. Did review the head CT with a possible normal pressure hydrocephalus but similar to the CT from February of 2024 that was compared to. Neurology can be called if this is thought to ultimately end up being a potential etiology. I do not feel the need to be called emergently at this time. It is likely her symptomatology may not vastly improve with treatment even if this is her potential etiology. Time: 19:09 Vital Signs Vital signs: Initial Vital Signs Temperature 97.5 F L 09/13/24 17:10 Temperature Source Temporal Artery Scan 09/13/24 17:10 Pulse Rate 68 09/13/24 17:10 Pulse Rhythm Regular 09/13/24 17:10 Pulse Strength 3+ Normal 09/13/24 17:10 Respiratory Rate 16 09/13/24 17:10 Blood Pressure 135/77 09/13/24 17:10 Blood Pressure Mean 96 09/13/24 17:10 Blood Pressure Position Supine 09/13/24 17:10 Pulse Oximetry 99 09/13/24 17:10 Oxygen Delivery Method Room Air 09/13/24 17:10 Vital Signs Temperature 97.5 F L 09/13/24 17:10 Pulse Rate 68 09/13/24 17:10 Respiratory Rate 16 09/13/24 17:10 Blood Pressure 135/77 09/13/24 17:10 Pulse Oximetry 99 09/13/24 17:10 Oxygen Delivery Method Room Air 09/13/24 17:10 Temperature 98.1 F 09/14/24 19:50 Pulse Rate 60 09/14/24 19:50 Respiratory Rate 18 09/14/24 19:50 Blood Pressure 135/89 09/14/24 19:50 Pulse Oximetry 92 09/14/24 19:50 Oxygen Delivery Method Room Air 09/14/24 19:50 Medications Administered Medications: Generic Name Dose Route Start Last Admin Trade Name Freq PRN Reason Stop Dose Admin Acetaminophen 650 mg 09/13/24 20:54 09/14/24 01:20 Acetaminophen 325 Mg Tablet PO 650 mg Q6H PRN Administration Pain Aspirin 81 mg 09/14/24 09:00 09/14/24 09:29 Aspirin 81 Mg Tablet Ec PO 81 mg DAILY HARPER Administration Enoxaparin Sodium 40 mg 09/13/24 21:00 09/14/24 21:06 Enoxaparin 40 Mg/0.4 Ml Inj SUBCUT 40 mg HS HARPER Administration Sodium Chloride 1,000 mls @ 75 mls/hr 09/14/24 15:07 09/14/24 15:23 0.9 % Sodium Chloride 1000 Ml IV Not Given .[id number] HARPER Insulin Aspart 0 unit 09/14/24 07:30 09/14/24 20:59 Insulin Aspart 100 Unit/Ml SUBCUT Not Given ACHS HARPER Protocol Melatonin 3 mg 09/13/24 23:03 09/14/24 21:06 Melatonin 3 Mg Tablet PO 3 mg HS PRN Administration Insomnia Metformin HCl 1,000 mg 09/14/24 09:00 09/14/24 21:04 Metformin 500 Mg Tablet PO 1,000 mg BIDWM HARPER Administration Ropinirole HCl 2 mg 09/14/24 08:20 09/14/24 21:07 Ropinirole Hcl 1 Mg Tablet PO 2 mg HS PRN Administration Sodium Chloride 5 ml 09/13/24 21:00 09/14/24 20:58 Sodium Chloride 0.9 % (Flush) 10 Ml Syringe IVF Not Given BID HARPER Venlafaxine HCl 150 mg 09/14/24 09:00 09/14/24 09:29 Venlafaxine Er 75 Mg Capsule PO 150 mg DAILY HARPER Administration Discontinued Medications Generic Name Dose Route Start Last Admin Trade Name Freq PRN Reason Stop Dose Admin Sodium Chloride 1,000 mls @ 75 mls/hr 09/13/24 19:09 09/14/24 08:37 0.9 % Sodium Chloride 1000 Ml IV 75 mls/hr .[id number] HARPER Administration Lisinopril 10 mg 09/14/24 09:00 09/14/24 09:29 Lisinopril 10 Mg Tablet PO 10 mg DAILY HARPER Administration Medical Decision Making Lab Data Lab results reviewed: Yes I reviewed the patient's lab results Labs: Lab Results 09/13/24 09/13/24 09/13/24 Range/Units 17:10 17:50 18:05 WBC 11.58 H (4.50-11.00) K/uL RBC 5.00 (4.00-5.20) m/uL Hgb 12.4 (12.0-16.0) gm/dL Hct 40.7 (33.0-51.0) % MCV 81 (80-100) fL MCH 25 L (26-34) pg MCHC 31 L (32-36) gm/dL RDW Coeff of Mp 15.5 (11.5-15.5) % Plt Count 275 (140-440) K/uL Neut % (Auto) 77.8 H (42.0-72.0) % Lymph % (Auto) 13.8 L (20-44) % Hamilton % (Auto) 7.4 (0.0-11.0) % Eos % (Auto) 0.7 (0.0-7.0) % Baso % (Auto) 0.0 (0.0-3.0) % Neut # (Auto) 9.00 H (1.7-7.0) K/uL Lymph # (Auto) 1.60 (0.90-2.90) K/uL Hamilton # (Auto) 0.90 (0.00-0.90) K/UL Eos # (Auto) 0.10 (0.00-0.50) K/uL Baso # (Auto) 0.00 (0.00-0.30) K/uL Abs Immat Gran (auto) 0.00 (0.00-0.30) K/uL Imm/Tot Granulo (auto) 0.3 % Sodium 133 L (135-149) mmol/L Potassium 5.0 (3.6-5.1) mmol/L Chloride 101 (96-114) mmol/L Carbon Dioxide 23 (20-32) mmol/L Anion Gap 9 (7-15) mEq/L BUN 34 H (7-30) mg/dL Creatinine 1.0 (0.5-1.5) mg/dL Estimated Creat Clear 41.05 Estimated GFR 57 ml/min Glucose 70 (60-115) mg/dL Lactate 1.7 (0.5-1.9) mmol/L Calcium 9.3 (8.4-10.6) mg/dL Magnesium 2.3 (1.5-2.6) mg/dL Total Bilirubin 0.7 (0.1-1.5) mg/dL AST 83 H (12-35) U/L ALT 42 H (4-35) U/L Alkaline Phosphatase 164 H (40-150) U/L Total Creatine Kinase 981 H (41-117) U/L Troponin I 0.02 (0.01-0.04) ng/mL C-Reactive Protein 1.5 H (0.5-1.0) mg/dL NT-Pro-B Natriuret Pep 651 pg/mL Total Protein 7.8 (6.0-8.3) g/dL Albumin 4.2 (3.3-5.0) g/dL Procalcitonin 0.11 (<0.50) ng/mL Urine Color Yellow (Yellow) Urine Appearance Clear (Clear) Urine pH 5.5 (5.0-8.5) Ur Specific Sunray 1.025 (1.000-1.030) Urine Protein 1+ A (Negative) Urine Glucose (UA) Negative (Negative) Urine Ketones 1+ A (Negative) Urine Blood Negative (Negative) Urine Nitrite Negative (Negative) Urine Bilirubin 1+ A (Negative) Urine Urobilinogen 0.2 (0.2-1.0) Ur Leukocyte Esterase Negative (Negative) Urine RBC 2-5 A (0-2) Urine WBC 2-5 (0-5) Ur Squamous Epith Cells None (None-Few) Urine Bacteria Moderate A (None) Ethyl Alcohol < 0.01 L (0.01-0.03) % SARS-CoV-2 (PCR) Negative SARS-CoV-2 (Negative) Influenza Type A (PCR) Negative PCR FLU A (Negative) Influenza Type B (PCR) Negative PCR FLU B (Negative) RSV (PCR) Negative PCR RSV (Negative) Lab Acknowledgement 09/13/24 09/14/24 Range/Units 19:24 05:42 WBC (4.50-11.00) K/uL RBC (4.00-5.20) m/uL Hgb (12.0-16.0) gm/dL Hct (33.0-51.0) % MCV (80-100) fL MCH (26-34) pg MCHC (32-36) gm/dL RDW Coeff of Mp (11.5-15.5) % Plt Count (140-440) K/uL Neut % (Auto) (42.0-72.0) % Lymph % (Auto) (20-44) % Hamilton % (Auto) (0.0-11.0) % Eos % (Auto) (0.0-7.0) % Baso % (Auto) (0.0-3.0) % Neut # (Auto) (1.7-7.0) K/uL Lymph # (Auto) (0.90-2.90) K/uL Hamilton # (Auto) (0.00-0.90) K/UL Eos # (Auto) (0.00-0.50) K/uL Baso # (Auto) (0.00-0.30) K/uL Abs Immat Gran (auto) (0.00-0.30) K/uL Imm/Tot Granulo (auto) % Sodium (135-149) mmol/L Potassium (3.6-5.1) mmol/L Chloride (96-114) mmol/L Carbon Dioxide (20-32) mmol/L Anion Gap (7-15) mEq/L BUN (7-30) mg/dL Creatinine (0.5-1.5) mg/dL Estimated Creat Clear Estimated GFR ml/min Glucose (60-115) mg/dL Lactate (0.5-1.9) mmol/L Calcium (8.4-10.6) mg/dL Magnesium (1.5-2.6) mg/dL Total Bilirubin (0.1-1.5) mg/dL AST (12-35) U/L ALT (4-35) U/L Alkaline Phosphatase (40-150) U/L Total Creatine Kinase 1035 H (41-117) U/L Troponin I (0.01-0.04) ng/mL C-Reactive Protein (0.5-1.0) mg/dL NT-Pro-B Natriuret Pep pg/mL Total Protein (6.0-8.3) g/dL Albumin (3.3-5.0) g/dL Procalcitonin (<0.50) ng/mL Urine Color (Yellow) Urine Appearance (Clear) Urine pH (5.0-8.5) Ur Specific Sunray (1.000-1.030) Urine Protein (Negative) Urine Glucose (UA) (Negative) Urine Ketones (Negative) Urine Blood (Negative) Urine Nitrite (Negative) Urine Bilirubin (Negative) Urine Urobilinogen (0.2-1.0) Ur Leukocyte Esterase (Negative) Urine RBC (0-2) Urine WBC (0-5) Ur Squamous Epith Cells (None-Few) Urine Bacteria (None) Ethyl Alcohol (0.01-0.03) % SARS-CoV-2 (PCR) (Negative) Influenza Type A (PCR) (Negative) Influenza Type B (PCR) (Negative) RSV (PCR) (Negative) Lab Acknowledgement Test Added Imaging Data CT scan - head: Attestation: I have reviewed the pertinent imaging results. Radiologist's impression: Patient: CATERINA FERRER Facility:?[facility] Patient ID:?[id number] Site Patient ID:?[id number]. Site :?[id number] Study:?CT-Head w/o-09/13/2024 5:40:59 PM Ordering Physician:?Rahul Somers Final Report: INDICATION: Altered mental status, falls. TECHNIQUE: Noncontrast CT of the head with multiplanar reconstruction utilizing bone and soft tissue algorithms. COMPARISON: CT head dated 08/28/2023. FINDINGS: No acute intracranial hemorrhage. Similar scattered confluent hypoattenuation within the white matter of both cerebral hemispheres, nonspecific, but typical of moderate chronic small vessel ischemic changes. The deng-white matter interface is preserved. Similar moderate diffuse parenchymal volume loss. As before, slight disproportionate enlargement of the ventricles, crowding of the sulci at the vertex, and prominence of the sylvian fissures. Intact calvarium and skull base. Unremarkable orbits. The paranasal sinuses and mastoid air cells are predominantly clear. IMPRESSION: 1. No acute intracranial hemorrhage or mass effect. 2. Similar moderate diffuse parenchymal volume loss and presumed chronic small vessel ischemic changes. 3. As before, slight disproportionate enlargement of the ventricles with respect to the sulci, apparent crowding of the sulci at the vertex, and prominence of the sylvian fissures, which can be seen in the setting of normal pressure hydrocephalus. Please note that all CT scans at this facility use dose modulation, iterative reconstruction, and/or weight-based dosing when appropriate to reduce radiation dose to as low as reasonably achievable. Dictated by Samy Ny MD @ 09/13/2024 6:04:53 PM (Electronic Signature) CT cervical spine: Attestation: I have reviewed the pertinent imaging results. Radiologist's impression: Patient: CATERINA FERRER Facility:?[facility] Patient ID:?[id number] Site Patient ID:?[id number]. Site :?[id number] Study:?CT-Spine Cervical W/O-09/13/2024 5:40:57 PM Ordering Physician:Caroline Somers Final Report: Indication: Altered mental status, falls. Technique: Noncontrast CT of the cervical spine with multiplanar reconstruction utilizing bone and soft tissue algorithms. Comparison: CT cervical spine dated 08/28/2023. Findings: No acute fracture or traumatic subluxation. No lytic or blastic lesion. Posterior aspects of the vertebral bodies are aligned. Vertebral body heights are maintained. There is no significant spinal canal stenosis. Multilevel neural foraminal narrowing is moderate-severe on the right at C4-C5 and C5-C6. The paraspinal soft tissues are unremarkable. Impression: 1. No acute fracture or traumatic subluxation. 2. Similar moderate-severe right neural foraminal narrowing at C4-C5 and C5-C6. Please note that all CT scans at this facility use dose modulation, iterative reconstruction, and/or weight-based dosing when appropriate to reduce radiation dose to as low as reasonably achievable. Dictated by Samy Ny MD @ 09/13/2024 6:17:34 PM (Electronic Signature) Chest x-ray: Attestation: I have reviewed the pertinent imaging results. Radiologist's impression: Patient: CATERINA FERRER Facility:?[facility] Patient ID:?[id number] Site Patient ID:?[id number]. Site :?1945 Study:?XRay-Chest 1 VIEW-09/13/2024 5:42:07 PM Ordering Physician:Caroline Somers Final Report: INDICATION: Altered mental status. TECHNIQUE: Chest radiograph, 1 view. COMPARISON: None. FINDINGS: Cardiovascular/Mediastinum: Normal heart size. Unremarkable. Lungs: No focal consolidation. Linear band like opacification of the lungs bilaterally, likely subsegmental atelectasis and/or scarring. Airways: Trachea remains midline. Pleura: No pleural effusions or pneumothorax. Bones: No acute osseous abnormalities. Status post bilateral shoulder arthroplasty. Upper abdomen: Unremarkable. IMPRESSION: No acute cardiopulmonary process. Dictated by Leobardo Aguirre MD @ 09/13/2024 6:24:57 PM (Electronic Signature) ECG Data Attestation: I personally reviewed and interpreted this ECG as follows: (Sinus rhythm, 71 beats per minute, premature atrial complexes seen. No evidence of any active ischemic change or infarct.) Prior ECG tracings: available for review (Was in sinus bradycardia in February of 2023) Discharge Plan Discharge Clinical Impression: Acute alteration in mental status, Elevated CK Patient Disposition: Admitted As Observation
--- NOTE | 2024-09-13 17:22 | CRLHL7_ITS ---
For Patients: As a result of the Cures Act, medical imaging exams and procedure reports are released immediately into your electronic medical record. You may view this report before your referring provider. If you have questions, please contact your health care provider. INDICATION: Altered mental status. TECHNIQUE: Chest radiograph, 1 view. COMPARISON: None. FINDINGS: Cardiovascular/Mediastinum: Normal heart size. Unremarkable. Lungs: No focal consolidation. Linear band like opacification of the lungs bilaterally, likely subsegmental atelectasis and/or scarring. Airways: Trachea remains midline. Pleura: No pleural effusions or pneumothorax. Bones: No acute osseous abnormalities. Status post bilateral shoulder arthroplasty. Upper abdomen: Unremarkable. IMPRESSION: No acute cardiopulmonary process. Dictated by Leobardo Aguirre MD @ 09/13/2024 6:24:57 PM (Electronically Signed)
--- NOTE | 2024-09-13 17:22 | CRLHL7_ITS ---
For Patients: As a result of the Cures Act, medical imaging exams and procedure reports are released immediately into your electronic medical record. You may view this report before your referring provider. If you have questions, please contact your health care provider. Indication: Altered mental status, falls. Technique: Noncontrast CT of the cervical spine with multiplanar reconstruction utilizing bone and soft tissue algorithms. Comparison: CT cervical spine dated 08/28/2023. Findings: No acute fracture or traumatic subluxation. No lytic or blastic lesion. Posterior aspects of the vertebral bodies are aligned. Vertebral body heights are maintained. There is no significant spinal canal stenosis. Multilevel neural foraminal narrowing is moderate-severe on the right at C4-C5 and C5-C6. The paraspinal soft tissues are unremarkable. Impression: 1. No acute fracture or traumatic subluxation. 2. Similar moderate-severe right neural foraminal narrowing at C4-C5 and C5-C6. Please note that all CT scans at this facility use dose modulation, iterative reconstruction, and/or weight-based dosing when appropriate to reduce radiation dose to as low as reasonably achievable. Dictated by Samy Ny MD @ 09/13/2024 6:17:34 PM (Electronically Signed)
[2024-09-13 17:45] LABS: Appearance Urine Clear (Clear); Bilirubin Urine 1+ (Negative); Blood Urine Negative (Negative); Color Urine Yellow (Yellow); Glucose Urine Negative (Negative); Ketones Urine 1+ (Negative); Leukocyte Esterase Urine Negative (Negative); Nitrite Urine Negative (Negative); Protein Urine 1+ (Negative); Specific Gravity Urine 1.025 (1.000-1.030); Urobilinogen Urine 0.2 (0.2-1.0); pH Urine 5.5 (5.0-8.5)
[2024-09-13 17:48] LABS: Bacteria Urine Moderate
--- OUTSIDE RECORDS SUMMARY | 2024-09-13 17:59 | XMS_ITS | Clinical Summary ---
Author Organization [facility] Address [place], [place] [address] Care Team Providers Care Optical Engineering Manager Name Role Phone Bill Miranda MD Unavailable [phone] Juju Mathews DO Primary Care Provider [phone] Allergies Active Allergy Reactions Criticality Noted Date [...] nasal solution (FLONASE)Indicatio ns:Chronic rhinitis Inhale 1 [place] into both nostrils once daily. 1 Bottle [...] >=3 years)(Flu Clinic Only) 06/19/2013,06/19/2011,07/01/2008 COVID-19 vaccine ([employer] 30mcg/0.3mL) PF, MDV 06/13/2021,12/07/2020,11/16/2020 DTaP 08/10/2011 Influenza [...] drink = 0.6 oz pur e alcohol) [facility] Utilities Answer Date Recorded Do you [...] on file Legal Sex Female 5:23 AM ACCOUNT EXECUTIVE SALES REPRESENTATIVE Gender Identity Not on file Sexual Orientation [...] cm (5' 1) 11/02/2023 10:4 9 AM ACCOUNT EXECUTIVE SALES REPRESENTATIVE Body Mass Index 29.61 11/02/2023 10:49 AM ACCOUNT EXECUTIVE SALES REPRESENTATIVE Plan of Treatment Upcoming Encounters Date Type Department Care Team (Late st Contact Info) Description 10/30/2024 2:40 PM ACCOUNT EXECUTIVE SALES REPRESENTATIVE Office Visit [facility] [address] [place] [address] Juju Mathews, DO [address] [place] [address] Health Maintenance Due Date Last Done Comments [...] 02/28/2022, 11/13/2013 Medical Devices Implanted Type Area Cardiothoracic Anesthesia Technician Device Identifier Shelf Expiration Date Model / Serial / Lot Sys Tissue Fixation - [id number] Implanted:Qty: 1 on 01/31/2012 at [facility] [employer] [id number] / / [id number] Sling Miniarc - [id number] Implanted:Qty: 1 on 01/31/2012 at [facility] [employer] [id number] / / [id number] Procedures Procedure Name Priority Date/Time Associated Diagnosis Comments ANTI HCV Add On 2020 1:21 PM CDT Need for hepatitis C screening test XR DXA BONE DENSITY 2 SITES AXIAL Routine 09/15/2014 9:07 AM ACCOUNT EXECUTIVE SALES REPRESENTATIVE Postmenopausal from Last 3 Months or Most Recently Relevant to Health Maintenance Results * ANTI HCV (2020 1:21 PM CDT) HEPATITIS C ANTIBODY Non-React alo Non-React alo 2020 8:59 PM CDT [facility] Comment:Antibodies to HCV no t detected; does not exclude the possibility of exposure to HCV. Blood BLOOD SPECIMEN / Unknown Venipuncture / Unknown 2020 1:21 PM CDT 2020 1:28 PM CDT us Ana María Carl MD SEND OUTS Final Res ult [facility] [address] [place] [address], [place] * (ABNORMAL) XR DXA BONE DENSITY 2 SITES (09/15/2014 9:07 AM ACCOUNT EXECUTIVE SALES REPRESENTATIVE) Anatomical Region Laterality Modality Spine, HIPS, HIPL, HIPR Bone Den sitometry Narrative 09/17/2014 9:49 AM ACCOUNT EXECUTIVE SALES REPRESENTATIVE Please see scanned document for results of this study. Procedure Note Ana María Carl MD - 09/17/2014 Please see scanned document for results of this study. us Juju Mathews DO DEXA Final Result from Last 3 Months or Most Recently Relevant to Health Maintenance Insurance [place]EN [id number] MEDICARE PART A HB ONLY MEDICARE PART B HB ONLY MEDICARE PART A HB ONLY MEDICARE ADVANTAGE [employer] [place] [id number] COMMERCIAL Advance Directives Documents on File Type Date Recorded Patient Office Support Associate Expl anation Healthcare Directive 11/04/2021 1:25 PM * Full Code (Latest Code Status on File) Date Activated Date Inactivated Comments 02/20/2018 7:35 AM 02/21/2018 2:35 AM * Full Code Date Activated Date Inactivated Comments 01/30/2012 12:20 PM 02/01/2012 3:47 PM Care Teams Optical Engineering Manager Relationship Specialty Start Date End Date Juju Mathews DO [address] [place] [id number] PCP - General Internal Medicine 12/28/21 Bill Miranda MD [address] [address] Neurology 12/29/20
--- OUTSIDE RECORDS SUMMARY | 2024-09-13 17:59 | XMS_ITS | Continuity of Care Document ---
Author Name [id number] Address Unknown Organization Unknown Address Unknown Procedures FILTER APPLIED:Only known Procedures with Onset Date within the last 5 years Procedure Date Procedure Provider Additiona l Information Status EMERGENCY DEPT VISIT MOD MDM (61799) Completed ROUTINE VENIPUNCTURE (64938) Completed CT HEAD/BRAIN W/O DYE (46443) Completed COMPLETE CBC W/AUTO DIFF WBC (20266) Completed X-RAY EXAM HIP UNI 2-3 VIEWS (20871) Completed METABOLIC PANEL TOTAL CA (43479) Completed CT NECK SPINE W/O DYE (27900) Completed Encounters FILTER APPLIED:Only known Encounters with Admission Date within the last 5 years Encounter Location Admission Discharge Billing Code Restaurant Manager Nir rocha [facility]
[2024-09-13 18:11] LABS: Lactate* 1.7 mmol/L (0.5-1.9)
[2024-09-13 18:12] LABS: Eosinophils Percent Auto 0.7 % (0.0-7.0); Hematocrit 40.7 % (33.0-51.0); Hemoglobin* 12.4 gm/dL (12.0-16.0); Immature Granulocytes Pct Auto 0.3 %; Lymphocytes Percent Auto 13.8 % (20-44); Mean Corpuscular HGB Conc 31 gm/dL (32-36); Mean Corpuscular Hemoglobin 25 pg (26-34); Mean Corpuscular Volume 81 fL (80-100); Monocytes Percent Auto 7.4 % (0.0-11.0); Neutrophils Percent Auto 77.8 % (42.0-72.0); Platelet Count* 275 K/uL (140-440); RDW Coefficient of Variation % 15.5 % (11.5-15.5); White Blood Count* 11.58 K/uL (4.50-11.00)
[2024-09-13 18:21] LABS: Slide Review Reflex No
[2024-09-13 18:31] LABS: Albumin* 4.2 g/dL (3.3-5.0); Chloride* 101 mmol/L (96-114); Sodium* 133 mmol/L (135-149)
[2024-09-13 18:34] LABS: Alkaline Phosphatase* 164 U/L (40-150); Anion Gap 9 mEq/L (7-15); Aspartate Amino Transferase* 83 U/L (12-35); Bilirubin Total* 0.7 mg/dL (0.1-1.5); Blood Urea Nitrogen* 34 mg/dL (7-30); Carbon Dioxide* 23 mmol/L (20-32); Creatine Kinase* 981 U/L (41-117); Est. Creatinine Clearance* 41.05; Estimated Glomerular Filt Rate 57 ml/min; Total Protein* 7.8 g/dL (6.0-8.3)
[2024-09-13 18:35] LABS: Alanine Aminotransferase* 42 U/L (4-35); Calcium* 9.3 mg/dL (8.4-10.6); Glucose* 70 mg/dL (60-115)
[2024-09-13 18:37] LABS: C Reactive Protein* 1.5 mg/dL (0.5-1.0)
[2024-09-13 18:47] LABS: Troponin I* 0.02 ng/mL (0.01-0.04)
[2024-09-13 18:51] LABS: Procalcitonin* 0.11 ng/mL (<0.50)
[2024-09-13 18:52] LABS: NT Pro B Type NatriureticPept* 651 pg/mL
[2024-09-13 18:56] LABS: Ethanol* < 0.01 % (0.01-0.03)
[2024-09-13 19:31] LABS: PCR FLU A Negative PCR FLU A (Negative); PCR FLU B Negative PCR FLU B (Negative); PCR RSV Negative PCR RSV (Negative); SARS PCR* Negative SARS-CoV-2 (Negative)
[2024-09-13] MEDS: 0.9 % SODIUM CHLORIDE 1000 ml 1,000 ML 75 ML IV (19:32)
[2024-09-13 19:34] LABS: Magnesium* 2.3 mg/dL (1.5-2.6)
--- NOTE | 2024-09-13 20:58 | PM.IMHP1 ---
Hospitalist- H&P: HPI History of Present Illness Time Seen by Provider: 20:58 Date Seen: 09/13/24 Chief complaint: Disoriented, drowsy Narrative: Jami Frost is a 78 year old female with a history of moderate dementia, stage 3 kidney disease, type 2 diabetes mellitus, restless leg syndrome, hypertension, hypercholesterolemia, osteopenia who is cared for at home by her and reportedly called EMS because she has had multiple falls over the last few days. I only met her briefly. When I came in the room and introduced myself as the doctor admitting her, his reply was to ask what I knew about causes of FARIBA horses. He then asked me many questions about the causes and treatment of FARIBA horses despite me wanting to move the conversation more toward what brought her in today. I then had to leave the room for a minute and I told him that I would come right back, but when I came back he was already gone for the night. Per the ER doc the notes that he has been doing everything around the house and caring for her, the cooking, cleaning, setting up her medications but for unclear reasons stated that he could not give her her medications the last 3 days, that she was too sleepy, bed ridden, and falling frequently. It is reported that somebody dropped all lift off at the house today. It is not clear if he knows how to use this lift safely for her. He is quite concerned about leg cramping. She does have a history of restless leg syndrome, but he said that she is getting FARIBA horses. He was also apparently unaware that she had a diagnosis of dementia although it is well documented in both her [facility] and [facility] records. The patient herself is unaware why she is here and is smiley and pleasant. She remained alert and smiling for the entirety of my conversation with her and exam. She says she feels just fine. She does endorse few falls at home but cannot tell me anything about them and says she has no pain and does not remember any injuries from falling. She told me both that her appetite was decreased and that it was just fine. Review of Systems Status of ROS: Reports: 10 or more systems reviewed and unremarkable except as noted in History and below (negative per patient; patient has dementia and accuracy of ROS is unclear) PFSH PFSH Medical History (Updated 09/13/24 @ 23:44 by Sofya Fragoso MD) Dementia ?F03.90 - Unspecified dementia, unspecified severity, without behavioral disturbance, psychotic disturbance, mood disturbance, and anxiety (ICD-10) Right thyroid nodule ?E04.1 - Nontoxic single thyroid nodule (ICD-10) Symptomatic menopausal or female climacteric states ?N95.1 - Menopausal and female climacteric states (ICD-10) Cystic acne ?L70.0 - Acne vulgaris (ICD-10) Trochanteric bursitis of left hip ?M70.62 - Trochanteric bursitis, left hip (ICD-10) Strain of left quadriceps tendon ?S76.112A - Strain of left quadriceps muscle, fascia and tendon, initial encounter (ICD-10) Impingement syndrome of right shoulder ?M75.41 - Impingement syndrome of right shoulder (ICD-10) Rotator cuff tear, left ?M75.102 - Unspecified rotator cuff tear or rupture of left shoulder, not specified as traumatic (ICD-10) Rosacea ?L71.9 - Rosacea, unspecified (ICD-10) Stage 3a chronic kidney disease ?N18.31 - Chronic kidney disease, stage 3a (ICD-10) Multiple lung nodules ?R91.8 - Other nonspecific abnormal finding of lung field (ICD-10) Prolapse of female genital organs ?N81.9 - Female genital prolapse, unspecified (ICD-10) 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 behavioral disturbance ?F03.B0 - Unspecified dementia, moderate, without behavioral disturbance, psychotic disturbance, mood disturbance, and anxiety (ICD-10) Neuropathy ?G62.9 - Polyneuropathy, unspecified (ICD-10) Primary osteoarthritis of left hip ?M16.12 - Unilateral primary osteoarthritis, left hip (ICD-10) Osteopenia ?M85.80 - Other specified disorders of bone density and structure, unspecified site (ICD-10) Osteoarthritis ?M19.90 - Unspecified osteoarthritis, unspecified site (ICD-10) Anemia of unknown etiology ?D64.9 - Anemia, unspecified (ICD-10) Chronic sinusitis ?J32.9 - Chronic sinusitis, unspecified (ICD-10) Type 2 diabetes mellitus with diabetic neuropathy, without long-term current use of insulin ?E11.40 - Type 2 diabetes mellitus with diabetic neuropathy, unspecified (ICD-10) Lichen planus ?L43.9 - Lichen planus, unspecified (ICD-10) Health care directive on file (10/26/21) ?Z78.9 - Other specified health status (ICD-10) RLS (restless legs syndrome) ?G25.81 - Restless legs syndrome (ICD-10) PONV (postoperative nausea and vomiting) ?R11.2 - Nausea with vomiting, unspecified (ICD-10) ?Z98.890 - Other specified postprocedural states (ICD-10) Fibromyalgia ?M79.7 - Fibromyalgia (ICD-10) Depression ?F32.A - Depression, unspecified (ICD-10) Folliculitis ?L73.9 - Follicular disorder, unspecified (ICD-10) Incontinence of urine ?R32 - Unspecified urinary incontinence (ICD-10) GERD (gastroesophageal reflux disease) ?K21.9 - Gastro-esophageal reflux disease without esophagitis (ICD-10) Elevated cholesterol ?E78.00 - Pure hypercholesterolemia, unspecified (ICD-10) Hypertension ?I10 - Essential (primary) hypertension (ICD-10) Surgical History (Updated 09/13/24 @ 21:32 by Sofya Fragoso MD) History of carpal tunnel release ?Z98.890 - Other specified postprocedural states (ICD-10) H/O myomectomy ?Z98.890 - Other specified postprocedural states (ICD-10) 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) ?Z96.611 - Presence of right artificial shoulder joint (ICD-10) Status post reverse arthroplasty of left shoulder (10/24/22) ?Z96.612 - Presence of left artificial shoulder joint (ICD-10) H/O arthroscopy of shoulder ?Z98.890 - Other specified postprocedural states (ICD-10) History of bladder suspension procedure ?Z98.890 - Other specified postprocedural states (ICD-10) ?Z87.448 - Personal history of other diseases of urinary system (ICD-10) Family History (Updated 09/13/24 @ 21:06 by Sofya Fragoso MD) Mother Cancer Breast cancer Father Brain cancer Sister Colon cancer Daughter Skin cancer Aunt Diabetes Social History (Updated 09/13/24 @ 21:26 by Sofya Fragoso MD) Narrative: She is and [place] in [place], [place] with her . Denies alcohol or tobacco use. is not available at this time to review code status. What is your current living situation?: I presently have a place to live Problems where you live: unable to answer Problems where you live details: N/A In the past 12 months, utilities in danger of being shut off: unable to answer In past 12 months, lack of transportation kept you from medical appts, meetings, work, or getting things needed for daily living: unable to answer In the past 12 mos, have been you worried that your food would run out before you had money to buy more?: unable to answer In the past 12 mos, the food you bought just didn't last and you didn't have money to buy more?: unable to answer Highest level of school completed/degree received: don't know Smoking Status: Never smoker Do you use any of these nicotine containing products: None Second hand tobacco smoke exposure: No How often do you have a drink containing alcohol: never How often do you have six or more drinks on one occasion: Never AUDIT-C Alcohol total score: 0 Non-prescribed substance use: denies use Caffeine: Yes (Diet Coke, 3 cans/day) How often does anyone, including family, friends and others, physically hurt you: unable to answer How often does anyone, including family, friends and others, insult or talk down to you: unable to answer How often does anyone, including family, friends and others, threaten you with harm: unable to answer How often does anyone, including family, friends and others, scream or curse at you: unable to answer service: No Meds Home Medications and Allergies Home Medications ?Medication ?Instructions ?Recorded ?Confirmed ?Type aspirin 81 mg tablet,delayed 81 mg PO QDAY 10/02/22 08/22/24 History release cholecalciferol (vitamin D3) 50 50 mcg PO QDAY 10/02/22 08/22/24 History mcg (2,000 unit) capsule glimepiride 4 mg tablet 4 mg PO QDAY 10/02/22 08/22/24 History linagliptin 5 mg tablet (Tradjenta) 5 mg PO QDAY 10/02/22 08/22/24 History lisinopril 10 mg tablet 10 mg PO QDAY 10/02/22 08/22/24 History metformin 500 mg tablet 1,000 mg PO BID 10/02/22 08/22/24 History pravastatin 40 mg tablet 40 mg PO QDAY 10/02/22 08/22/24 History ropinirole 2 mg tablet 2 mg PO QDAY PRN 10/02/22 08/22/24 History venlafaxine 150 mg 150 mg PO DAILY 10/02/22 08/22/24 History capsule,extended release 24 hr Home Medication Comments: sets up medications. He left before we could discuss these. Will need to review with him tomorrow. Allergies Allergy/AdvReac Type Severity Reaction Status Date / Time pioglitazone (From [employer]) Allergy Unknown Verified 08/22/24 09:45 simvastatin Allergy Unknown Verified 08/22/24 09:45 penicillin V Allergy Rash Verified 08/22/24 09:45 Exam Narrative: Exam Narrative: General: No acute distress. Pleasant, smiling, follows commands. Awake alert oriented to self and place only. She was able to tell me her birthdate. She did no know the month, day, or season. HEENT: Normocephalic atraumatic, pupils equally round and reactive to light and accommodation. Oropharynx clear. Mucous membranes are moist. No cervical lymphadenopathy, thyromegaly or carotid bruits. No JVD. Cardiovascular: Regular rate and rhythm. No murmurs, gallops, or rubs. Chest: No increased work of breathing. Clear to auscultation bilaterally. No crackles or wheezes. Abdomen: Bowel sounds present. Soft, nondistended, nontender. No hepatosplenomegaly or masses. Extremities: No edema, no cyanosis or clubbing. Skin: No jaundice, no pallor, no rashes. Neuro: There are no focal deficits. Romberg is negative. Cranial nerves 2-12 are intact. Extraocular movements are full. No nystagmus. No facial asymmetry. Tongue is midline. Peripheral vision and vision are grossly intact. Strength is 5/5 in all 4 extremities. Light touch sensation is intact in face body and extremities. Coordination is intact in upper and lower extremities. Const: Vital Signs, click to edit/add: Vital Signs - 24 hr 09/13/24 17:10 09/13/24 17:16 09/13/24 17:17 Temperature 97.5 F L Pulse Rate 70 69 Pulse Rate [Right Pulse Oximeter] 68 Respiratory Rate 16 Blood Pressure 125/105 H 135/77 Blood Pressure [Le ft Arm] Blood Pressure [Ri ght Upper Arm] 135/77 Pulse Oximetry 99 97 98 Oxygen Delivery Me thod Room Air 09/13/24 17:18 09/13/24 17:50 09/13/24 18:08 Temperature Pulse Rate 70 74 67 Pulse Rate [Right Pulse Oximeter] Respiratory Rate Blood Pressure Blood Pressure [Le ft Arm] Blood Pressure [Ri ght Upper Arm] Pulse Oximetry 99 99 96 Oxygen Delivery Me thod 09/13/24 18:15 09/13/24 18:30 09/13/24 18:45 Temperature Pulse Rate 77 77 79 Pulse Rate [Right Pulse Oximeter] Respiratory Rate Blood Pressure Blood Pressure [Le ft Arm] Blood Pressure [Ri ght Upper Arm] Pulse Oximetry 100 100 100 Oxygen Delivery Az thod 09/13/24 19:06 09/13/24 20:26 Temperature 98.5 F Pulse Rate 76 Pulse Rate [Right Pulse Oximeter] 67 Respiratory Rate 18 Blood Pressure Blood Pressure [Le ft Arm] 137/81 Blood Pressure [Ri ght Upper Arm] Pulse Oximetry 96 100 Oxygen Delivery Az thod Room Air Hospitalist - H&P: Result Labs Labs: Short CBC 09/13/24 Range/Units 18:05 WBC 11.58 H (4.50-11.00) K/uL Hgb 12.4 (12.0-16.0) gm/dL Hct 40.7 (33.0-51.0) % Plt Count 275 (140-440) K/uL BMP 09/13/24 18:05 Sodium 133 L Potassium 5.0 Chloride 101 Carbon Dioxide 23 BUN 34 H Creatinine 1.0 Glucose 70 Calcium 9.3 Cardiac Enzymes 09/13/24 Range/Units 18:05 Total Creatine Kinase 981 H (41-117) U/L Troponin I 0.02 (0.01-0.04) ng/mL Liver Function 09/13/24 Range/Units 18:05 Total Bilirubin 0.7 (0.1-1.5) mg/dL AST 83 H (12-35) U/L ALT 42 H (4-35) U/L Alkaline Phosphatase 164 H (40-150) U/L Albumin 4.2 (3.3-5.0) g/dL Urine 09/13/24 Range/Units 17:10 Urine Color Yellow (Yellow) Urine Appearance Clear (Clear) Urine pH 5.5 (5.0-8.5) Ur Specific [place] 1.025 (1.000-1.030) Urine Protein 1+ A (Negative) Urine Glucose (UA) Negative (Negative) 09/13/2024 EKG: Sinus rhythm with fusion complexes and premature atrial complexes, 71 beats per minute. Low-voltage QRS. Ordering Physician: Lizbet Kay M.D. Date of Service: 09/13/24 Procedure(s): CT cervical spine wo con Accession Number(s): [id number] cc: Lizbet Kay M.D.; Sherri Mathews For Patients: As a result of the Cures Act, medical imaging exams and procedure reports are released immediately into your electronic medical record. You may view this report before your referring provider. If you have questions, please contact your health care provider. Indication: Altered mental status, falls. Technique: Noncontrast CT of the cervical spine with multiplanar reconstruction utilizing bone and soft tissue algorithms. Comparison: CT cervical spine dated 08/28/2023. Findings: No acute fracture or traumatic subluxation. No lytic or blastic lesion. Posterior aspects of the vertebral bodies are aligned. Vertebral body heights are maintained. There is no significant spinal canal stenosis. Multilevel neural foraminal narrowing is moderate-severe on the right at C4-C5 and C5-C6. The paraspinal soft tissues are unremarkable. Impression: 1. No acute fracture or traumatic subluxation. 2. Similar moderate-severe right neural foraminal narrowing at C4-C5 and C5-C6. Please note that all CT scans at this facility use dose modulation, iterative reconstruction, and/or weight-based dosing when appropriate to reduce radiation dose to as low as reasonably achievable. Dictated by Samy Ny MD @ 09/13/2024 6:17:34 PM (Electronically Signed) Ordering Physician: Lizbet Kay M.D. Date of Service: 09/13/24 Procedure(s): XR chest 1V Accession Number(s): [id number] cc: Lizbet Kay M.D.; Reid,Juju~ For Patients: As a result of the Cures Act, medical imaging exams and procedure reports are released immediately into your electronic medical record. You may view this report before your referring provider. If you have questions, please contact your health care provider. INDICATION: Altered mental status. TECHNIQUE: Chest radiograph, 1 view. COMPARISON: None. FINDINGS: Cardiovascular/Mediastinum: Normal heart size. Unremarkable. Lungs: No focal consolidation. Linear band like opacification of the lungs bilaterally, likely subsegmental atelectasis and/or scarring. Airways: Trachea remains midline. Pleura: No pleural effusions or pneumothorax. Bones: No acute osseous abnormalities. Status post bilateral shoulder arthroplasty. Upper abdomen: Unremarkable. IMPRESSION: No acute cardiopulmonary process. Dictated by Leobardo Aguirre MD @ 09/13/2024 6:24:57 PM (Electronically Signed) Ordering Physician: Lizbet Kay M.D. Date of Service: 09/13/24 Procedure(s): CT head/brain wo con Accession Number(s): [id number] cc: Lizbet Kay M.D.; Sherri Mathews For Patients: As a result of the Cures Act, medical imaging exams and procedure reports are released immediately into your electronic medical record. You may view this report before your referring provider. If you have questions, please contact your health care provider. INDICATION: Altered mental status, falls. TECHNIQUE: Noncontrast CT of the head with multiplanar reconstruction utilizing bone and soft tissue algorithms. COMPARISON: CT head dated 08/28/2023. FINDINGS: No acute intracranial hemorrhage. Similar scattered confluent hypoattenuation within the white matter of both cerebral hemispheres, nonspecific, but typical of moderate chronic small vessel ischemic changes. The deng-white matter interface is preserved. Similar moderate diffuse parenchymal volume loss. As before, slight disproportionate enlargement of the ventricles, crowding of the sulci at the vertex, and prominence of the sylvian fissures. Intact calvarium and skull base. Unremarkable orbits. The paranasal sinuses and mastoid air cells are predominantly clear. IMPRESSION: 1. No acute intracranial hemorrhage or mass effect. 2. Similar moderate diffuse parenchymal volume loss and presumed chronic small vessel ischemic changes. 3. As before, slight disproportionate enlargement of the ventricles with respect to the sulci, apparent crowding of the sulci at the vertex, and prominence of the sylvian fissures, which can be seen in the setting of normal pressure hydrocephalus. Please note that all CT scans at this facility use dose modulation, iterative reconstruction, and/or weight-based dosing when appropriate to reduce radiation dose to as low as reasonably achievable. Dictated by Samy Ny MD @ 09/13/2024 6:04:53 PM (Electronically Signed) Assessment and Plan Assessment and plan (1) Acute alteration in mental status: Problem comment: - per - patient alert and oriented to self and place here and in the ER. Possible delirium vs declining mental capabilities due to dementia. apparently unaware she has this diagnosis (dementia) already. Status: Acute (2) Elevated CK: Problem comment: - several reported falls at home, per ER also reported she's been in bed most of the last few days - possible rhabdomyolysis, Cr at baseline - Start gentle IVF to avoid volume overload and recheck CK in am Status: Acute (3) Falls: Problem comment: - caring for patient at home, reportedly had lift delivered today - no discernible injuries from falls within the past few days (did have shoulder injury in August for which she saw ortho) - fall precautions - PT and OT evals Status: Acute (4) Diabetes: Problem comment: - poor appetite - hold home medications and use ISS. 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
[2024-09-13] MEDS: ENOXAPARIN 40 MG/0.4 ML INJ SUBCUT (21:33)
[2024-09-13] MEDS: MELATONIN 3 MG TABLET PO (23:30)
[2024-09-14] VITALS (7 sets, daily range): BP systolic 117–161; BP diastolic 54–89; PULSE 60–84; RESP 16–18; TEMP 36.1–37.1; O2SAT 92–100
[2024-09-14] MEDS: ACETAMINOPHEN 325 MG TABLET 650 MG PO (01:20)
--- NOTE | 2024-09-14 06:20 | PC.NURSE ---
End of shift note : Pt only alert & oriented to self and place. External catheter utilized overnight as pt is noted to have hx of urinary incontinence. Pt noted to have foul urine odor upon assessment. VSS- pt has been afebrile and on RA throughout the shift. Pt noted to have RLS overnight with PRN Tylenol given after PRN Melatonin ineffective to treat insomnia. IV to L AC patent with NS running per order in place. [employer] did?confirm with evening hospitalist MD Fragoso that wanted this order to continue as it was started by ED MD. Pt was able to roll side to side independently at times in bed though needed assist of 2 being boosted up in bed. Pt?s reported she was having ?brown and red-tinged sputum at home though pt noted to have dry nonproductive intermittent cough overnight. noted that pt coughed on sip of water last evening. She was able to eat cracker without coughing. Pt was originally admitted to room 249 on med/surg though was moved to room 245 due to being such high fall risk. Tele in place with NSR and sinus arrhythmia noted this shift. Pt removed tele leads several times throughout the shift, requiring RN to correctly replace leads. Bed alarm on, call light within reach. ?
[2024-09-14 06:59] LABS: Creatine Kinase* 1035 U/L (41-117)
[2024-09-14] MEDS: 0.9 % SODIUM CHLORIDE 1000 ml 1,000 ML 75 ML IV (08:37)
[2024-09-14] MEDS: SODIUM CHLORIDE 0.9 % (FLUSH) 10 ML SYRINGE 5 ML IVF (09:29)
[2024-09-14] MEDS: METFORMIN 500 MG TABLET 1000 MG PO ×2 (09:29→21:04)
[2024-09-14] MEDS: lisinopriL 10 MG TABLET PO (09:29)
[2024-09-14] MEDS: ASPIRIN 81 MG TABLET EC PO (09:29)
[2024-09-14] MEDS: VENLAFAXINE ER 75 MG CAPSULE 150 MG PO (09:29)
--- NOTE | 2024-09-14 14:52 | P.IMPN_ITS ---
Progress Note: A&P Assessment and plan (1) Acute metabolic encephalopathy: Problem details: Metabolic encephalopathy most likely. She has underlying dementia but she has been hard to arouse and not eating or drinking much or taking medications or able to walk in the last 2-3 days. Much weaker than normal. Status: Acute (2) Rhabdomyolysis: Problem details: - several reported falls at home, per ER also reported she's been in bed most of the last few days - possible rhabdomyolysis, Cr at baseline - Start gentle IVF to avoid volume overload and recheck CK Initial increase in CK. Continue IV fluids Status: Acute (3) Falls: Problem details: - caring for patient at home, reportedly had lift delivered today - no discernible injuries from falls within the past few days (did have shoulder injury in August for which she saw ortho) - fall precautions - PT and OT evals Patient likely needs 24/ supervision and assistance with ambulation. would like to provide this. Status: Acute (4) Hypoglycemia: Problem details: Could be contributing to altered mental status and falls. Patient and do not do monitoring at home. Status: Acute (5) Diabetes: Problem details: Hypoglycemic here despite having apparently no blood sugar medications in the past 2-3 days. Resume metformin. Stop glimepiride. Possibly restart linagliptin. Close monitoring. 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 She has apparently been having relatively stable health status except for her falls until the last few days when she has had an acute decline. That change includes spending most the day in bed, not eating, not taking medications, becoming weak. She has developed rhabdomyolysis. She has abnormal LFTs. This appears to be a metabolic encephalopathy and possibly some other significant problem yet to be identified. She appears high risk for complications and unclear whether her is going to be able to continue to care for her in the home given her significant disabilities and complexity of her care needs. Anticipate at least 3 days in the hospital to evaluate and manage these issues. Total time spent today is 60 minutes in reviewing medical records, talking to and other providers. Subjective Date Seen: 09/14/24 Interval history: Jami Frost is a 78 year old female with a history of moderate dementia, stage 3 kidney disease, type 2 diabetes mellitus, restless leg syndrome, hypertension, hypercholesterolemia, osteopenia who is cared for at home by her and reportedly called EMS because she has had multiple falls over the last few days. I only met her briefly. When I came in the room and introduced myself as the doctor admitting her, his reply was to ask what I knew about causes of FARIBA horses. He then asked me many questions about the causes and treatment of FARIBA horses despite me wanting to move the conversation more toward what brought her in today. I then had to leave the room for a minute and I told him that I would come right back, but when I came back he was already gone for the night. Per the ER doc the notes that he has been doing everything around the house and caring for her, the cooking, cleaning, setting up her medications but for unclear reasons stated that he could not give her her medications the last 3 days, that she was too sleepy, bed ridden, and falling frequently. It is reported that somebody dropped all lift off at the house today. It is not clear if he knows how to use this lift safely for her. He was also apparently unaware that she had a diagnosis of dementia although it is well documented in both her [facility] and [facility] records. The patient herself is unaware why she is here and is smiley and pleasant. She remained alert and smiling for the entirety of my conversation with her and exam. She says she feels just fine. She does endorse few falls at home but cannot tell me anything about them and says she has no pain and does not remember any injuries from falling. She told me both that her appetite was decreased and that it was just fine. Additional history from the : Diabetes management: Patient's gives all her medications. He has not given her any medications in the last 2 days because she has been with altered mental status. He does not check her blood sugars at all. Last hemoglobin A1c was in April at 8.3. Notably her blood sugar this morning was 54 having had no medications for diabetes taken in the last 2-3 days. Frequent falls: Patient's reports that she falls out of bed frequently, as often as daily. He has put an air mattress on the floor by her bed so she has a soft landing. When she falls she can get herself up. He reports she sometimes falls at other times including when she is standing up. It is unclear whether she is losing her balance or passing out. He does not check her blood sugar when this happens. She does not appear to be having seizures as he has not witnessed any seizure activity. She does not use an assistive device. She has a cane which she does not use at home. She normally ambulates independently. She is unable to get herself up when she falls. He recently got a lift to use at home to help her up. Code status is DNR. is healthcare power of commercial real estate attorney Exam Narrative: Exam Narrative: She is awake sitting in the chair. She minimally answers questions. She follows simple commands. Otherwise minimal verbal communication. Const: Vital Signs, click to edit/add: Vital Signs - 24 hr 09/13/24 17:10 09/13/24 17:16 09/13/24 17:17 Temperature 97.5 F L Pulse Rate 70 69 Pulse Rate [Right Pulse Oximeter] 68 Respiratory Rate 16 Blood Pressure 125/105 H 135/77 Blood Pressure [Le ft Arm] Blood Pressure [Ri ght Arm] Blood Pressure [Ri ght Upper Arm] 135/77 Pulse Oximetry 99 97 98 Oxygen Delivery Me thod Room Air 09/13/24 17:18 09/13/24 17:50 09/13/24 18:08 Temperature Pulse Rate 70 74 67 Pulse Rate [Right Pulse Oximeter] Respiratory Rate Blood Pressure Blood Pressure [Le ft Arm] Blood Pressure [Ri ght Arm] Blood Pressure [Ri ght Upper Arm] Pulse Oximetry 99 99 96 Oxygen Delivery Me thod 09/13/24 18:15 09/13/24 18:30 09/13/24 18:45 Temperature Pulse Rate 77 77 79 Pulse Rate [Right Pulse Oximeter] Respiratory Rate Blood Pressure Blood Pressure [Le ft Arm] Blood Pressure [Ri ght Arm] Blood Pressure [Ri ght Upper Arm] Pulse Oximetry 100 100 100 Oxygen Delivery Me thod 09/13/24 19:06 09/13/24 20:26 09/13/24 20:26 Temperature 98.5 F Pulse Rate 76 Pulse Rate [Right Pulse Oximeter] 67 Respiratory Rate 18 18 Blood Pressure Blood Pressure [Le ft Arm] 137/81 Blood Pressure [Ri ght Arm] Blood Pressure [Ri ght Upper Arm] Pulse Oximetry 96 100 [facility] 09/13/24 21:19 09/13/24 23:20 09/13/24 23:30 Temperature 98.1 F Pulse Rate 73 64 Pulse Rate [Right Pulse Oximeter] 63 Respiratory Rate 18 Blood Pressure Blood Pressure [Le ft Arm] Blood Pressure [Ri ght Arm] 114/51 L Blood Pressure [Ri ght Upper Arm] Pulse Oximetry 100 [facility] 09/13/24 23:30 09/13/24 23:34 09/14/24 03:11 Temperature 97.9 F Pulse Rate Pulse Rate [Right Pulse Oximeter] 63 60 Respiratory Rate 18 18 18 Blood Pressure Blood Pressure [Le ft Arm] Blood Pressure [Ri ght Arm] 143/65 H Blood Pressure [Ri ght Upper Arm] Pulse Oximetry 100 98 [facility] Room [facility] 09/14/24 07:00 09/14/24 07:00 09/14/24 07:00 Temperature 97.0 F L Pulse Rate 68 Pulse Rate [Right Pulse Oximeter] 66 Respiratory Rate 16 Blood Pressure Blood Pressure [Le ft Arm] Blood Pressure [Ri ght Arm] 161/82 H Blood Pressure [Ri ght Upper Arm] Pulse Oximetry 100 100 [facility] Room Air 09/14/24 07:00 09/14/24 11:00 Temperature 97.6 F Pulse Rate Pulse Rate [Right Pulse Oximeter] 66 66 Respiratory Rate 16 16 Blood Pressure Blood Pressure [Le ft Arm] Blood Pressure [Ri ght Arm] 141/64 H Blood Pressure [Ri ght Upper Arm] Pulse Oximetry 99 [facility] Documenting provider has reviewed patient's vital signs: yes Labs Labs: Laboratory Results - last 24 hr 09/13/24 09/13/24 09/13/24 17:10 17:50 18:05 WBC 11.58 H RBC 5.00 Hgb 12.4 Hct 40.7 MCV 81 MCH 25 L MCHC 31 L RDW Coeff of Mp 15.5 Plt Count 275 Neut % (Auto) 77.8 H Lymph % (Auto) 13.8 L Harrison % (Auto) 7.4 Eos % (Auto) 0.7 Baso % (Auto) 0.0 Neut # (Auto) 9.00 H Lymph # (Auto) 1.60 Harrison # (Auto) 0.90 Eos # (Auto) 0.10 Baso # (Auto) 0.00 Abs Immat Gran (auto) 0.00 Imm/Tot Granulo (auto) 0.3 Sodium 133 L Potassium 5.0 Chloride 101 Carbon Dioxide 23 Anion Gap 9 BUN 34 H Creatinine 1.0 Estimated Creat Clear 41.05 Estimated GFR 57 Glucose 70 Lactate 1.7 Calcium 9.3 Magnesium 2.3 Total Bilirubin 0.7 AST 83 H ALT 42 H Alkaline Phosphatase 164 H Total Creatine Kinase 981 H Troponin I 0.02 C-Reactive Protein 1.5 H NT-Pro-B Natriuret Pep 651 Total Protein 7.8 Albumin 4.2 Procalcitonin 0.11 Urine Color Yellow Urine Appearance Clear Urine pH 5.5 Ur Specific [place] 1.025 Urine Protein 1+ A Urine Glucose (UA) Negative Urine Ketones 1+ A Urine Blood Negative Urine Nitrite Negative Urine Bilirubin 1+ A Urine Urobilinogen 0.2 Ur Leukocyte Esterase Negative Urine RBC 2-5 A Urine WBC 2-5 Ur Squamous Epith Cells None Urine Bacteria Moderate A Ethyl Alcohol < 0.01 L SARS-CoV-2 (PCR) Negative SARS-CoV-2 Influenza Type A (PCR) Negative PCR FLU A Influenza Type B (PCR) Negative PCR FLU B RSV (PCR) Negative PCR RSV Lab Acknowledgement 09/13/24 09/14/24 19:24 05:42 WBC RBC Hgb Hct MCV MCH MCHC RDW Coeff of Mp Plt Count Neut % (Auto) Lymph % (Auto) Harrison % (Auto) Eos % (Auto) Baso % (Auto) Neut # (Auto) Lymph # (Auto) Harrison # (Auto) Eos # (Auto) Baso # (Auto) Abs Immat Gran (auto) Imm/Tot Granulo (auto) Sodium Potassium Chloride Carbon Dioxide Anion Gap BUN Creatinine Estimated Creat Clear Estimated GFR Glucose Lactate Calcium Magnesium Total Bilirubin AST ALT Alkaline Phosphatase Total Creatine Kinase 1035 H Troponin I C-Reactive Protein NT-Pro-B Natriuret Pep Total Protein Albumin Procalcitonin Urine Color Urine Appearance Urine pH Ur Specific [place] Urine Protein Urine Glucose (UA) Urine Ketones Urine Blood Urine Nitrite Urine Bilirubin Urine Urobilinogen Ur Leukocyte Esterase Urine RBC Urine WBC Ur Squamous Epith Cells Urine Bacteria Ethyl Alcohol SARS-CoV-2 (PCR) Influenza Type A (PCR) Influenza Type B (PCR) RSV (PCR) Lab Acknowledgement Test Added
--- NOTE | 2024-09-14 15:12 | CRLHL7_ITS ---
For Patients: As a result of the Century Cures Act, medical imaging exams and procedure reports are released immediately into your electronic medical record. You may view this report before your referring provider. If you have questions, please contact your health care provider. INDICATION: Poor appetite, elevated liver enzymes, altered mental status COMPARISON: none TECHNIQUE: Real time deng scale imaging and color Doppler analysis was performed of the right upper quadrant. FINDINGS: The visualized liver is of normal size and has uniform echogenicity. The left hepatic lobe is not well visualized. The IVC and aorta are not well visualized. Atherosclerotic changes are present. There is no evidence of ascites. The gallbladder is incompletely distended. The gallbladder wall measures 2.3 millimeters. The common bile duct is not visualized. The visualized pancreas appears normal. There is no evidence of a stone or hydronephrosis within the right kidney. The right kidney measures 8.2 cm in length. Main portal vein is patent with antegrade flow. IMPRESSION: Excessive bowel gas limits evaluation. No abnormalities within the visualized anatomy. Dictated by Oral Bernard MD @ 09/14/2024 7:29:49 PM (Electronically Signed)
--- NOTE | 2024-09-14 19:43 | W.PM.CROSSCO ---
Subjective Subjective Interval history: I was asked to f/u on RUQ US results: Excessive bowel gas limits evaluation. No abnormalities within the visualized anatomy. No change in current plan of care.
--- NOTE | 2024-09-14 20:02 | PC.NURSE ---
End of Shift: Patient pleasant and cooperative. Alert to self. Afebrile. Denies pain. Up to chair and bathroom with 2 assist and Alix Steady. Tolerating regular diet with no nausea.
[2024-09-14] MEDS: ENOXAPARIN 40 MG/0.4 ML INJ SUBCUT (21:06)
[2024-09-14] MEDS: MELATONIN 3 MG TABLET PO (21:06)
[2024-09-14] MEDS: ROPINIROLE HCL 1 MG TABLET 2 MG PO (21:07)
[2024-09-15] VITALS (10 sets, daily range): BP systolic 111–146; BP diastolic 50–90; PULSE 51–70; RESP 16–18; TEMP 36.4–36.7; O2SAT 97–99
[2024-09-15] MEDS: 0.9 % SODIUM CHLORIDE 1000 ml 1,000 ML 75 ML IV ×2 (00:38→13:30)
--- NOTE | 2024-09-15 06:24 | PC.NURSE ---
End of shift note [id number]: Pt alert & oriented to self and place only. She is requiring assist of 2 with Alix palacios for transferring. IV to L AC patent with NS running per order. Pt has been afebrile and on RA throughout the shift. Pt has been incontinent of bladder. Pt had one episode of emesis late last night which was noted to be undigested food. MD Fragoso updated. Tele in place with sinus arrhythmia noted. Pt incontinent of bladder. Pills crushed in pudding. Blood sugars of 166 and 150 this shift. Bed alarm on, call light within reach. ?
[2024-09-15 06:36] LABS: Basophils Absolute Auto 0.02 K/uL (0.00-0.30); Basophils Percent Auto 0.3 % (0.0-3.0); Eosinophils Absolute Auto 0.14 K/uL (0.00-0.50); Eosinophils Percent Auto 2.1 % (0.0-7.0); Hematocrit 32.8 % (33.0-51.0); Immature Granulocytes Abs Auto 0.05 K/uL (0.00-0.30); Immature Granulocytes Pct Auto 0.8 %; Lymphocytes Absolute Auto 1.87 K/uL (0.90-2.90); Lymphocytes Percent Auto 28.1 % (20-44); Mean Corpuscular HGB Conc 31 gm/dL (32-36); Mean Corpuscular Hemoglobin 25 pg (26-34); Mean Corpuscular Volume 82 fL (80-100); Monocytes Percent Auto 7.8 % (0.0-11.0); Neutrophils Absolute Auto 4.05 K/uL (1.7-7.0); Neutrophils Percent Auto 60.9 % (42.0-72.0); Platelet Count* 252 K/uL (140-440); RDW Coefficient of Variation % 15.5 % (11.5-15.5); Red Blood Count 4.01 m/uL (4.00-5.20); White Blood Count* 6.65 K/uL (4.50-11.00)
[2024-09-15 06:39] LABS: Slide Review Reflex No
[2024-09-15 06:53] LABS: Chloride* 108 mmol/L (96-114)
[2024-09-15 06:54] LABS: Albumin* 3.2 g/dL (3.3-5.0); Potassium* 4.3 mmol/L (3.6-5.1); Sodium* 134 mmol/L (135-149)
[2024-09-15 06:56] LABS: Creatinine* 0.9 mg/dL (0.5-1.5); Est. Creatinine Clearance* 41.05; Estimated Glomerular Filt Rate 65 ml/min
[2024-09-15 06:57] LABS: Alanine Aminotransferase* 39 U/L (4-35); Alkaline Phosphatase* 139 U/L (40-150); Anion Gap 4 mEq/L (7-15); Aspartate Amino Transferase* 50 U/L (12-35); Bilirubin Total* 0.5 mg/dL (0.1-1.5); Blood Urea Nitrogen* 23 mg/dL (7-30); Calcium* 8.5 mg/dL (8.4-10.6); Carbon Dioxide* 22 mmol/L (20-32); Creatine Kinase* 433 U/L (41-117); Glucose* 148 mg/dL (60-115); Total Protein* 6.1 g/dL (6.0-8.3)
[2024-09-15 07:00] LABS: C Reactive Protein* 1.3 mg/dL (0.5-1.0)
--- NOTE | 2024-09-15 09:12 | NUTR.NU ---
RDN with nutrition screen related to positive skin risk. Patient admitted with hypoglycemia, metabolic encephalopathy, and rhabdomyolysis. Past medical history includes but not limited to dementia, recurrent falls and diabetes. She currently lives at home with her who is her pail bailer. Current weight 134lb 4.8oz; height 5ft 5in; BMI 22.3 kg/m2. Weight records incomplete, unable to assess weight loss. Only one weight recorded in 2023 of 147lbs. However, gradual weight loss noted since 2022. Diet order is Regular. Meal intakes since admit have been adequate, ranging from 50-75%. Per nursing note, patient is only oriented to self and place at this time. Not appropriate to visit with at this time. With adequate oral intakes, no nutrition interventions at this time. RDN will continue to monitor and follow-up prn.
[2024-09-15] MEDS: VENLAFAXINE ER 75 MG CAPSULE 150 MG PO (09:15)
[2024-09-15] MEDS: METFORMIN 500 MG TABLET 1000 MG PO ×2 (09:15→17:13)
[2024-09-15] MEDS: ASPIRIN 81 MG TABLET EC PO (09:15)
[2024-09-15] MEDS: lisinopriL 5 MG TABLET PO (09:15)
--- NOTE | 2024-09-15 13:02 | PC.SOCIAL ---
Discharge planning: Met with pt's in room regarding d/c plan. Provided with list of rehab facilities and discussed option for short term rehab at discharge. refuses this option and states he will tae her home and provide care at home at discharge. states that if pt needs two people tp assist her at discharge, he has someone I can call. states he will agree to home PT/OT if covered by insurance. has social work specialist's contact information and is aware of how to contact social work specialist to have further discussions regarding discharge planning if needed. harvest worker fruit to follow up as needed.
--- NOTE | 2024-09-15 14:13 | CRLHL7_ITS ---
For Patients: As a result of the Century Cures Act, medical imaging exams and procedure reports are released immediately into your electronic medical record. You may view this report before your referring provider. If you have questions, please contact your health care provider. INDICATION: Abdominal pain and vomiting. Patient did have 2 falls on 08/28 with a right hip injury. COMPARISON: None. TECHNIQUE: CT of the abdomen and pelvis with intravenous contrast. Multiplanar axial, coronal, and sagittal reformats were reconstructed. Contrast: 76 mL Isovue 370. FINDINGS: Lung bases: Prominent pulmonary vascular markings with smooth interlobular septal thickening. Calcified granuloma left lung. Liver: Minimal focal fat at the falciform ligament. Gallbladder and bile ducts: Normal gallbladder. No bile duct dilation. Pancreas: Normal. Spleen: Normal. Adrenal glands: Normal. Kidneys: Normal parenchyma. No cyst or solid mass. No calculi. No urinary tract dilation. Urinary bladder: Normal. Pelvis: Postmenopausal appearance of the uterus. No worrisome cyst or mass. Vessels: Atherosclerotic vascular calcifications. No aortic aneurysm. Patent mesenteric vessels. Bowel: Small paraesophageal hernia. Fluid distended stomach, small bowel, and proximal colon. No abnormal bowel wall thickening or abnormal bowel enhancement. Normal appendix. No colonic diverticuli. [id number] stool burden. Lymph nodes: No adenopathy. Peritoneum: No ascites. No free air. Abdominal wall: Fat containing umbilical hernia. No bowel containing hernia. Several hyperdense foci in the distal right psoas muscle and in the iliacus muscle. There is some fluid with scattered peripheral high density along the distal iliopsoas tendon. Prior right inferior abdominal wall surgical repair. Bones: Healing nondisplaced right 9th and 10th rib fractures. No focal worrisome bone lesions. IMPRESSION: 1. Appearance of the bowel most consistent with a mild enteritis. No findings of ischemia or findings specific to inflammatory bowel disease. 2. Mild pulmonary edema. 3. Abnormal appearance of the right iliopsoas muscles and distal tendon. Favor the sequela of a prior injury/retroperitoneal hematoma. Recommend clinical follow-up to ensure there are no signs of an expanding hematoma. Discussed with Dr. Fragoso at 4:13 p.m. on 09/15/2024. 4. Healing nondisplaced right 9th and 10th rib fractures. Please note that all CT scans at this facility use dose modulation, iterative reconstruction, and/or weight-based dosing when appropriate to reduce radiation dose to as low as reasonably achievable. Dictated by Yas Gaytan MD @ 09/15/2024 4:15:31 PM (Electronically Signed)
--- NOTE | 2024-09-15 15:19 | PM.IMPN1 ---
Progress Note: A&P Assessment and plan (1) Acute metabolic encephalopathy: Problem details: Metabolic encephalopathy most likely. She has underlying dementia but she has been hard to arouse and not eating or drinking much or taking medications or able to walk in the last 2-3 days. Much weaker than normal. Suspect abdominal problem is primary illness. Ongoing evaluation. Status: Acute (2) Rhabdomyolysis: Problem details: - several reported falls at home, per ER also reported she's been in bed most of the last few days - possible rhabdomyolysis, Cr at baseline - Start gentle IVF to avoid volume overload and recheck CK Initial increase in CK. Continue IV fluids. Improving Status: Acute (3) Falls: Problem details: - caring for patient at home, reportedly had lift delivered today - no discernible injuries from falls within the past few days (did have shoulder injury in August for which she saw ortho) - fall precautions - PT and OT evals Patient likely needs 24/7 supervision and assistance with ambulation. would like to provide this. Status: Acute (4) Hypoglycemia: Problem details: Could be contributing to altered mental status and falls. Patient and do not do monitoring at home. Status: Acute (5) Diabetes: Problem details: Hypoglycemic here despite having apparently no blood sugar medications in the past 2-3 days. Resume metformin. Stop glimepiride. Possibly restart linagliptin. Close monitoring. 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 Obtain CT abdomen to evaluate for ongoing vomiting and poor oral intake Status: Acute Plan Continue in hospital for ongoing evaluation management of vomiting abdominal pain and encephalopathy. She is needing ongoing investigation for these acute on chronic changes. Also needs ongoing investigation and therapy for her weakness and immobility and frequent falls. Continue in-hospital for safe discharge plan for that. Total time spent today is 35 minutes in coordination of care and discussing with patient's and other providers ongoing plan of care Subjective Date Seen: 09/15/24 Interval history: Jami Frost is a 78 year old female with a history of moderate dementia, stage 3 kidney disease, type 2 diabetes mellitus, restless leg syndrome, hypertension, hypercholesterolemia, osteopenia who is cared for at home by her and reportedly called EMS because she has had multiple falls over the last few days. I only met her briefly. When I came in the room and introduced myself as the doctor admitting her, his reply was to ask what I knew about causes of FARIBA horses. He then asked me many questions about the causes and treatment of FARIBA horses despite me wanting to move the conversation more toward what brought her in today. I then had to leave the room for a minute and I told him that I would come right back, but when I came back he was already gone for the night. Per the ER doc the notes that he has been doing everything around the house and caring for her, the cooking, cleaning, setting up her medications but for unclear reasons stated that he could not give her her medications the last 3 days, that she was too sleepy, bed ridden, and falling frequently. It is reported that somebody dropped all lift off at the house today. It is not clear if he knows how to use this lift safely for her. He was also apparently unaware that she had a diagnosis of dementia although it is well documented in both her [facility] and [facility] records. The patient herself is unaware why she is here and is smiley and pleasant. She remained alert and smiling for the entirety of my conversation with her and exam. She says she feels just fine. She does endorse few falls at home but cannot tell me anything about them and says she has no pain and does not remember any injuries from falling. She told me both that her appetite was decreased and that it was just fine. Additional history from the : Diabetes management: Patient's gives all her medications. He has not given her any medications in the last 2 days because she has been with altered mental status. He does not check her blood sugars at all. Last hemoglobin A1c was in April at 8.3. Notably her blood sugar this morning was 54 having had no medications for diabetes taken in the last 2-3 days. Frequent falls: Patient's reports that she falls out of bed frequently, as often as daily. He has put an air mattress on the floor by her bed so she has a soft landing. When she falls she can get herself up. He reports she sometimes falls at other times including when she is standing up. It is unclear whether she is losing her balance or passing out. He does not check her blood sugar when this happens. She does not appear to be having seizures as he has not witnessed any seizure activity. She does not use an assistive device. She has a cane which she does not use at home. She normally ambulates independently. She is unable to get herself up when she falls. He recently got a lift to use at home to help her up. Code status is DNR. is healthcare power of commercial litigation attorney 09/15/2024: Patient had another emesis last night. She is eating minimally. She is more alert today. Staff note she requires assist of 2 to stand and transfer. She reports no complaints or concerns today. I again reviewed with her her current health status and my concerns about her need for more care. Exam Narrative: Exam Narrative: She is alert and more interactive than yesterday. She is oriented to being in the hospital but otherwise can give no significant history. Head is without trauma. Oropharynx with dry mucous membranes. Respirations are clear to auscultation. Cardiovascular: S1, S2, regular rate and rhythm. Abdomen: Bowel sounds present. Minimal abdominal tenderness. No mass. Extremities without edema. She moves all 4 extremities well Const: Vital Signs, click to edit/add: Vital Signs - 24 hr 09/14/24 18:52 09/14/24 19:50 09/14/24 23:00 Temperature 98.1 F Pulse Rate 65 Pulse Rate [Right Pulse Oximeter] 60 Pulse Rate [orthos tatic lying Left P ulse Oximeter] 64 Pulse Rate [orthos tatic sitting Left Pulse Oximeter] 71 Pulse Rate [orthos tatic standing Lef t Pulse Oximeter] 84 Respiratory Rate 18 Blood Pressure [Ri ght Arm] 135/89 Blood Pressure [or thostatic lying Ri ght Arm] 127/55 L Blood Pressure [or thostatic sitting Right Arm] 125/64 Blood Pressure [or thostatic standing Right Arm] 128/68 Pulse Oximetry 92 Oxygen Delivery Me thod Room Air 09/14/24 23:00 09/15/24 00:41 09/15/24 00:41 Temperature 98.1 F Pulse Rate Pulse Rate [Right Pulse Oximeter] 62 62 Pulse Rate [orthos tatic lying Left P ulse Oximeter] Pulse Rate [orthos tatic sitting Left Pulse Oximeter] Pulse Rate [orthos tatic standing Lef t Pulse Oximeter] Respiratory Rate 16 16 16 Blood Pressure [Ri ght Arm] 111/50 L Blood Pressure [or thostatic lying Ri ght Arm] Blood Pressure [or thostatic sitting Right Arm] Blood Pressure [or thostatic standing Right Arm] Pulse Oximetry 99 99 Oxygen Delivery Or thod Room Air Room Air 09/15/24 03:45 09/15/24 07:00 09/15/24 07:30 Temperature 97.7 F Pulse Rate 51 L Pulse Rate [Right Pulse Oximeter] 60 55 L Pulse Rate [orthos tatic lying Left P ulse Oximeter] Pulse Rate [orthos tatic sitting Left Pulse Oximeter] Pulse Rate [orthos tatic standing Lef t Pulse Oximeter] Respiratory Rate 16 16 Blood Pressure [Ri ght Arm] 131/58 L Blood Pressure [or thostatic lying Ri ght Arm] Blood Pressure [or thostatic sitting Right Arm] Blood Pressure [or thostatic standing Right Arm] Pulse Oximetry 99 Oxygen Delivery Or thod Room Air 09/15/24 07:30 09/15/24 07:30 09/15/24 13:00 Temperature 97.8 F 97.5 F L Pulse Rate Pulse Rate [Right Pulse Oximeter] 55 L 61 Pulse Rate [orthos tatic lying Left P ulse Oximeter] Pulse Rate [orthos tatic sitting Left Pulse Oximeter] Pulse Rate [orthos tatic standing Lef t Pulse Oximeter] Respiratory Rate 16 16 16 Blood Pressure [Ri ght Arm] 144/57 H 137/74 Blood Pressure [or thostatic lying Ri ght Arm] Blood Pressure [or thostatic sitting Right Arm] Blood Pressure [or thostatic standing Right Arm] Pulse Oximetry 99 99 97 Oxygen Delivery Or thod Room Air Room Air Room Air Documenting provider has reviewed patient's vital signs: yes Labs Labs: Laboratory Results - last 24 hr 09/15/24 06:01 WBC 6.65 RBC 4.01 Hgb 10.0 L Hct 32.8 L MCV 82 MCH 25 L MCHC 31 L RDW Coeff of Mp 15.5 Plt Count 252 Neut % (Auto) 60.9 Lymph % (Auto) 28.1 [place] % (Auto) 7.8 Eos % (Auto) 2.1 Baso % (Auto) 0.3 Neut # (Auto) 4.05 Lymph # (Auto) 1.87 [place] # (Auto) 0.50 Eos # (Auto) 0.14 Baso # (Auto) 0.02 Abs Immat Gran (auto) 0.05 Imm/Tot Granulo (auto) 0.8 Sodium 134 L Potassium 4.3 Chloride 108 Carbon Dioxide 22 Anion Gap 4 L BUN 23 Creatinine 0.9 Estimated Creat Clear 41.05 Estimated GFR 65 Glucose 148 H Calcium 8.5 Total Bilirubin 0.5 AST 50 H ALT 39 H Alkaline Phosphatase 139 Total Creatine Kinase 433 H C-Reactive Protein 1.3 H Total Protein 6.1 Albumin 3.2 L TSH 1.940 Imaging US - abdomen: Radiologist's impression: INDICATION: Poor appetite, elevated liver enzymes, altered mental status COMPARISON: none TECHNIQUE: Real time deng scale imaging and color Doppler analysis was performed of the right upper quadrant. FINDINGS: The visualized liver is of normal size and has uniform echogenicity. The left hepatic lobe is not well visualized. The IVC and aorta are not well visualized. Atherosclerotic changes are present. There is no evidence of ascites. The gallbladder is incompletely distended. The gallbladder wall measures 2.3 millimeters. The common bile duct is not visualized. The visualized pancreas appears normal. There is no evidence of a stone or hydronephrosis within the right kidney. The right kidney measures 8.2 cm in length. Main portal vein is patent with antegrade flow. IMPRESSION: Excessive bowel gas limits evaluation. No abnormalities within the visualized anatomy.
[2024-09-15] MEDS: INSULIN ASPART 100 UNIT/ML SUBCUT (17:13)
--- NOTE | 2024-09-15 18:43 | PC.NURSE ---
End of Shift [id number]: Patient pleasant and cooperative, oriented to self and at times. Patient vitally stable, lungs course, BS WNL, IV running NS at 75. Patient has a runny nose and intermittent moist cough. Patient denies pain. Patient 2 assist with walker. Patient does not have much appetite only eating 25% of dinner, but tolerating diet. Patient incontinent but also used commode, urinating well. Blood sugar was 205. Tele=sinus Arrhythmia.
[2024-09-15] MEDS: ROPINIROLE HCL 1 MG TABLET 2 MG PO (20:53)
[2024-09-15] MEDS: ENOXAPARIN 40 MG/0.4 ML INJ SUBCUT (20:53)
[2024-09-15] MEDS: SODIUM CHLORIDE 0.9 % (FLUSH) 10 ML SYRINGE 5 ML IVF (20:53)
--- NOTE | 2024-09-15 22:45 | P.CCN_ITS ---
Subjective Subjective Interval history: I received a phone call from Dr. Gaytan, radiologist, who read the abdomi nal/pelvis CT on this patient. She reported that there is an abnormal appearance to the right iliopsoas muscle which is concerning for possible prior injury and possible retroperitoneal hematoma. Discussed that the patient had an ER visit on 08/28/2024 after several falls and concern of right hip pain. She recommended following a hemoglobin and following the patient clinically to determine if there are signs of expanding hematoma. This patient already has a CBC ordered for the morning. I will notify the day team about this finding as well.
[2024-09-16] VITALS (8 sets, daily range): BP systolic 126–157; BP diastolic 55–70; PULSE 56–69; RESP 16–18; TEMP 36.1–36.9; O2SAT 97–100
--- NOTE | 2024-09-16 06:19 | PC.NURSE ---
: oriented to self. A x 2 with gb and walker. Incont. Pt removed 2 IVs, unable to keep maintenance fluids going d/t pt pulling at lines, encouraging oral intake of water.
[2024-09-16 06:59] LABS: Basophils Absolute Auto 0.03 K/uL (0.00-0.30); Basophils Percent Auto 0.4 % (0.0-3.0); Eosinophils Absolute Auto 0.28 K/uL (0.00-0.50); Eosinophils Percent Auto 3.6 % (0.0-7.0); Hematocrit 33.1 % (33.0-51.0); Hemoglobin* 10.1 gm/dL (12.0-16.0); Immature Granulocytes Abs Auto 0.09 K/uL (0.00-0.30); Immature Granulocytes Pct Auto 1.2 %; Lymphocytes Absolute Auto 2.26 K/uL (0.90-2.90); Mean Corpuscular HGB Conc 31 gm/dL (32-36); Mean Corpuscular Hemoglobin 25 pg (26-34); Mean Corpuscular Volume 82 fL (80-100); Monocytes Percent Auto 6.3 % (0.0-11.0); Neutrophils Absolute Auto 4.64 K/uL (1.7-7.0); Neutrophils Percent Auto 59.5 % (42.0-72.0); Platelet Count* 235 K/uL (140-440); RDW Coefficient of Variation % 15.6 % (11.5-15.5); Red Blood Count 4.06 m/uL (4.00-5.20); White Blood Count* 7.79 K/uL (4.50-11.00)
[2024-09-16 07:00] LABS: Slide Review Reflex No
[2024-09-16 07:23] LABS: Albumin* 3.2 g/dL (3.3-5.0); Chloride* 104 mmol/L (96-114)
[2024-09-16 07:24] LABS: Potassium* 4.4 mmol/L (3.6-5.1); Sodium* 130 mmol/L (135-149)
[2024-09-16 07:26] LABS: Alkaline Phosphatase* 132 U/L (40-150); Anion Gap 4 mEq/L (7-15); Aspartate Amino Transferase* 41 U/L (12-35); Bilirubin Total* 0.6 mg/dL (0.1-1.5); Carbon Dioxide* 22 mmol/L (20-32); Creatinine* 0.7 mg/dL (0.5-1.5); Est. Creatinine Clearance* 41.05; Estimated Glomerular Filt Rate 88 ml/min; Total Protein* 6.1 g/dL (6.0-8.3)
[2024-09-16 07:27] LABS: Alanine Aminotransferase* 37 U/L (4-35); Blood Urea Nitrogen* 17 mg/dL (7-30); Calcium* 8.3 mg/dL (8.4-10.6); Glucose* 98 mg/dL (60-115)
[2024-09-16 07:29] LABS: C Reactive Protein* 0.6 mg/dL (0.5-1.0)
[2024-09-16] MEDS: lisinopriL 5 MG TABLET PO (08:52)
[2024-09-16] MEDS: VENLAFAXINE ER 75 MG CAPSULE 150 MG PO (08:52)
[2024-09-16] MEDS: METFORMIN 500 MG TABLET 1000 MG PO ×2 (08:52→17:51)
[2024-09-16] MEDS: SODIUM CHLORIDE 0.9 % (FLUSH) 10 ML SYRINGE 5 ML IVF (08:52)
[2024-09-16] MEDS: ASPIRIN 81 MG TABLET EC PO (08:52)
--- NOTE | 2024-09-16 10:13 | PC.SOCIAL ---
Addendum entered by YOHANA Naranjo 09/16/24 14:23: Per PT, worked with them and showed that he could meet pt's ambulation and toileting needs at this time. continues to state he will take pt home at discharge and can care for her at home. is refusing placement in a facility. agrees to accept home care PT and OT if covered by insurance. Provided with a list of home care agencies and he refused to choose stating it needs to be an agency covered by insurance and serving [place] and he does not care which one. Called multiple home health agencies to ask about availability to accept this referral if MD orders PT/OT for home. The only agency that had availability to start within a few days and serves the [place], [place] area was [facility]. barnworker groom to check with and send referral to [facility] if MD orders home care and agrees. barnworker groom to follow up as needed. Original Note: Discharge planning: Called pt's who continues to state he is refusing placement in a short term rehab facility and will take pt home at discharge. states he has always taken care of her and he will figure it out. plans to be at the hospital at noon and would like to talk with physician and physical therapy. barnworker groom to follow up as needed.
--- NOTE | 2024-09-16 17:02 | P.IMPN_ITS ---
Progress Note: A&P Assessment and plan (1) Acute metabolic encephalopathy: Problem details: Metabolic encephalopathy most likely. She has underlying dementia but she has been hard to arouse and not eating or drinking much or taking medications or able to walk in the last 2-3 days. Much weaker than normal. Suspect abdominal problem is primary illness. Ongoing evaluation. Status: Acute (2) Rhabdomyolysis: Problem details: - several reported falls at home, per ER also reported she's been in bed most of the last few days - possible rhabdomyolysis, Cr at baseline - Start gentle IVF to avoid volume overload and recheck CK Initial increase in CK. Continue IV fluids. Improving Status: Acute (3) Falls: Problem details: - caring for patient at home, reportedly had lift delivered today - no discernible injuries from falls within the past few days (did have shoulder injury in August for which she saw ortho) - fall precautions - PT and OT evals Patient likely needs 24/7 supervision and assistance with ambulation. would like to provide this. Status: Acute (4) Hypoglycemia: Problem details: Could be contributing to altered mental status and falls. Patient and do not do monitoring at home. Status: Acute (5) Diabetes: Problem details: Hypoglycemic here despite having apparently no blood sugar medications in the past 2-3 days. Resume metformin. Stop glimepiride. Possibly restart linagliptin. Close monitoring. Status: Chronic (6) Hypertension: Status: Chronic (7) Dementia: Problem details: 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 behavioral disturbance Status: Chronic (8) Decreased appetite: Problem details: Likely related to whatever is causing her metabolic encephalopathy. Appetite is somewhat improving. 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 Obtain CT abdomen to evaluate for ongoing vomiting and poor oral intake Status: Acute (12) Iliopsoas muscle hematoma: Problem details: Likely occurred an accidental falls at home Status: Acute (13) Rib fractures: Problem details: Likely occurred in accidental falls at home Status: Acute Plan Continue in hospital for ongoing evaluation management. Total time spent today is 40 minutes in reviewing with patient and , therapy and social media project manager ongoing plan of care.: Ongoing concerns about her ability to live safely with her and his ability to care for her in light of her need for a lot of assistance, standby assistance 02/04, glucose monitoring and other supervision and safety monitoring. Subjective Date Seen: 09/16/24 Interval history: Jami Frost is a 78 year old female with a history of moderate dementia, stage 3 kidney disease, type 2 diabetes mellitus, restless leg syndrome, hypertension, hypercholesterolemia, osteopenia who is cared for at home by her and reportedly called EMS because she has had multiple falls over the last few days. I only met her briefly. When I came in the room and introduced myself as the doctor admitting her, his reply was to ask what I knew about causes of FARIBA horses. He then asked me many questions about the causes and treatment of FARIBA horses despite me wanting to move the conversation more toward what brought her in today. I then had to leave the room for a minute and I told him that I would come right back, but when I came back he was already gone for the night. Per the ER doc the notes that he has been doing everything around the house and caring for her, the cooking, cleaning, setting up her medications but for unclear reasons stated that he could not give her her medications the last 3 days, that she was too sleepy, bed ridden, and falling frequently. It is reported that somebody dropped all lift off at the house today. It is not clear if he knows how to use this lift safely for her. He was also apparently unaware that she had a diagnosis of dementia although it is well documented in both her [facility] and [facility] records. The patient herself is unaware why she is here and is smiley and pleasant. She remained alert and smiling for the entirety of my conversation with her and exam. She says she feels just fine. She does endorse few falls at home but cannot tell me anything about them and says she has no pain and does not remember any injuries from falling. She told me both that her appetite was decreased and that it was just fine. Additional history from the : Diabetes management: Patient's gives all her medications. He has not given her any medications in the last 2 days because she has been with altered mental status. He does not check her blood sugars at all. Last hemoglobin A1c was in April at 8.3. Notably her blood sugar this morning was 54 having had no medications for diabetes taken in the last 2-3 days. Frequent falls: Patient's reports that she falls out of bed frequently, as often as daily. He has put an air mattress on the floor by her bed so she has a soft landing. When she falls she can get herself up. He reports she sometimes falls at other times including when she is standing up. It is unclear whether she is losing her balance or passing out. He does not check her blood sugar when this happens. She does not appear to be having seizures as he has not witnessed any seizure activity. She does not use an assistive device. She has a cane which she does not use at home. She normally ambulates independently. She is unable to get herself up when she falls. He recently got a lift to use at home to help her up. Code status is DNR. is healthcare power of health care attorney 09/15/2024: Patient had another emesis last night. She is eating minimally. She is more alert today. Staff note she requires assist of 2 to stand and transfer. She reports no complaints or concerns today. I again reviewed with her her current health status and my concerns about her need for more care. 09/16/2024: Patient reports feeling fine today. Probably eating a little better though history is limited. Still needing assist of 2 to stand and transfer. More alert. Seen with her . CT obtained last night showed old fractures of the right 9th and 10th ribs, probable hematoma of the right iliopsoas, mild pulmonary edema, mild enteritis. Exam Narrative: Exam Narrative: She is alert and appears in no distress. Breathing is unlabored. Respirations are clear to auscultation. Cardiovascular: S1, S2, regular rate and rhythm. Abdomen is soft without tenderness or mass. Extremities without edema. Const: Vital Signs, click to edit/add: Vital Signs - 24 hr 09/15/24 19:40 09/15/24 22:39 09/15/24 23:00 Temperature 97.8 F 97.9 F Pulse Rate Pulse Rate [Apical ] Pulse Rate [Right Pulse Oximeter] 67 61 Respiratory Rate 18 18 18 Blood Pressure [Ri ght Arm] 123/90 H 146/56 H Pulse Oximetry 99 99 99 Oxygen Delivery Me thod Room Air Room Air Room Air 09/15/24 23:00 09/15/24 23:00 09/16/24 02:37 Temperature 97 F L Pulse Rate 65 Pulse Rate [Apical ] Pulse Rate [Right Pulse Oximeter] 63 Respiratory Rate 18 18 Blood Pressure [Ri ght Arm] 157/65 H Pulse Oximetry 99 Oxygen Delivery Ok thod Room Air 09/16/24 07:36 09/16/24 07:36 09/16/24 07:39 Temperature 97.3 F L Pulse Rate 56 L Pulse Rate [Apical ] Pulse Rate [Right Pulse Oximeter] 62 Respiratory Rate 16 18 Blood Pressure [Ri ght Arm] 141/70 H Pulse Oximetry 98 98 [facility] 09/16/24 11:27 09/16/24 15:51 09/16/24 15:57 Temperature 98.4 F Pulse Rate 61 Pulse Rate [Apical ] 63 Pulse Rate [Right Pulse Oximeter] Respiratory Rate 18 18 Blood Pressure [Ri ght Arm] 126/55 L Pulse Oximetry 97 97 [facility] Room Air 09/16/24 15:57 Temperature 97.5 F L Pulse Rate Pulse Rate [Apical ] 65 Pulse Rate [Right Pulse Oximeter] Respiratory Rate 18 Blood Pressure [Ri ght Arm] 131/58 L Pulse Oximetry 97 [facility] Documenting provider has reviewed patient's vital signs: yes Labs Labs: Laboratory Results - last 24 hr 09/16/24 05:56 WBC 7.79 RBC 4.06 Hgb 10.1 L Hct 33.1 MCV 82 MCH 25 L MCHC 31 L RDW Coeff of Mp 15.6 H Plt Count 235 Neut % (Auto) 59.5 Lymph % (Auto) 29.0 [place] % (Auto) 6.3 Eos % (Auto) 3.6 Baso % (Auto) 0.4 Neut # (Auto) 4.64 Lymph # (Auto) 2.26 [place] # (Auto) 0.50 Eos # (Auto) 0.28 Baso # (Auto) 0.03 Abs Immat Gran (auto) 0.09 Imm/Tot Granulo (auto) 1.2 Sodium 130 L Potassium 4.4 Chloride 104 Carbon Dioxide 22 Anion Gap 4 L BUN 17 Creatinine 0.7 Estimated Creat Clear 41.05 Estimated GFR 88 Glucose 98 Calcium 8.3 L Total Bilirubin 0.6 AST 41 H ALT 37 H Alkaline Phosphatase 132 C-Reactive Protein 0.6 Total Protein 6.1 Albumin [address] scan - abdomen: Radiologist's impression: INDICATION: Abdominal pain and vomiting. Patient did have 2 falls on 08/28 with a right hip injury. COMPARISON: None. TECHNIQUE: CT of the abdomen and pelvis with intravenous contrast. Multiplanar axial, coronal, and sagittal reformats were reconstructed. Contrast: 76 mL Isovue 370. FINDINGS: Lung bases: Prominent pulmonary vascular markings with smooth interlobular septal thickening. Calcified granuloma left lung. Liver: Minimal focal fat at the falciform ligament. Gallbladder and bile ducts: Normal gallbladder. No bile duct dilation. Pancreas: Normal. Spleen: Normal. Adrenal glands: Normal. Kidneys: Normal parenchyma. No cyst or solid mass. No calculi. No urinary tract dilation. Urinary bladder: Normal. Pelvis: Postmenopausal appearance of the uterus. No worrisome cyst or mass. Vessels: Atherosclerotic vascular calcifications. No aortic aneurysm. Patent mesenteric vessels. Bowel: Small paraesophageal hernia. Fluid distended stomach, small bowel, and proximal colon. No abnormal bowel wall thickening or abnormal bowel enhancement. Normal appendix. No colonic diverticuli. [id number] stool burden. Lymph nodes: No adenopathy. Peritoneum: No ascites. No free air. Abdominal wall: Fat containing umbilical hernia. No bowel containing hernia. Several hyperdense foci in the distal right psoas muscle and in the iliacus muscle. There is some fluid with scattered peripheral high density along the distal iliopsoas tendon. Prior right inferior abdominal wall surgical repair. Bones: Healing nondisplaced right 9th and 10th rib fractures. No focal worrisome bone lesions. IMPRESSION: 1. Appearance of the bowel most consistent with a mild enteritis. No findings of ischemia or findings specific to inflammatory bowel disease. 2. Mild pulmonary edema. 3. Abnormal appearance of the right iliopsoas muscles and distal tendon. Favor the sequela of a prior injury/retroperitoneal hematoma. Recommend clinical follow-up to ensure there are no signs of an expanding hematoma. Discussed with Dr. Fragoso at 4:13 p.m. on 09/15/2024. 4. Healing nondisplaced right 9th and 10th rib fractures.
[2024-09-16] MEDS: TORSEMIDE 5 MG TABLET PO (17:52)
[2024-09-16] MEDS: INSULIN ASPART 100 UNIT/ML SUBCUT ×2 (17:52→21:16)
[2024-09-16] MEDS: ENOXAPARIN 40 MG/0.4 ML INJ SUBCUT (21:12)
[2024-09-17] MEDS: ACETAMINOPHEN 325 MG TABLET 650 MG PO (00:26)
[2024-09-17] MEDS: MELATONIN 3 MG TABLET PO (00:26)
[2024-09-17] MEDS: ROPINIROLE HCL 1 MG TABLET 2 MG PO (00:28)
[2024-09-17 00:29] VITALS: BP 149/70; PULSE 62; RESP 16; TEMP 36.3; O2SAT 100
[2024-09-17 04:25] VITALS: BP 148/64; PULSE 63; RESP 20; O2SAT 99
[2024-09-17 05:25] VITALS: PULSE 68
[2024-09-17 07:39] VITALS: PULSE 62
[2024-09-17 08:09] VITALS: BP 127/65; PULSE 62; RESP 16; TEMP 36.4; O2SAT 98
[2024-09-17] MEDS: lisinopriL 5 MG TABLET PO (08:52)
[2024-09-17] MEDS: ASPIRIN 81 MG TABLET EC PO (08:52)
[2024-09-17] MEDS: METFORMIN 500 MG TABLET 1000 MG PO (08:53)
[2024-09-17] MEDS: VENLAFAXINE ER 75 MG CAPSULE 150 MG PO (08:53)
[2024-09-17] MEDS: TORSEMIDE 5 MG TABLET PO (08:53)
[2024-09-17 11:46] VITALS: BP 143/63; PULSE 60; RESP 16; TEMP 36.6; O2SAT 97
--- NOTE | 2024-09-17 14:36 | PC.SOCIAL ---
Discharge planning: Met with pt and again about discharge plan. continues to refuse placement stating he can care for pt at home. requested home health be arranged with [facility] as this is covered by insurance, but also wavers about wether or not he will let the home care workers in when they arrive at the house. [facility] report made based on pt's vulnerability and care needs. [facility] report #[id number]. Called [facility] and spoke with Emelina Hall in Adult Protection regarding this report.
--- NOTE | 2024-09-17 15:40 | P.DS_ITS ---
DS: Providers Provider Date Seen: 09/17/24 Date of admission: 09/14/24 15:00 Primary care physician: Juju Mathews Admitting Clinician: Sofya Fragoso MD Attending Physician on discharge: Navneet Sánchez MD Date of Discharge: 09/17/24 DS: Diagnosis Discharge Diagnosis (1) Acute metabolic encephalopathy: Status: Acute Problem details: Metabolic encephalopathy most likely. She has underlying dementia but she has been hard to arouse and not eating or drinking much or taking medications or able to walk in the last 2-3 days. Much weaker than normal. Suspect abdominal problem is primary illness. Improved during hospital stay (2) Rhabdomyolysis: Status: Acute Problem details: - several reported falls at home, per ER also reported she's been in bed most of the last few days - possible rhabdomyolysis, Cr at baseline - Start gentle IVF to avoid volume overload and recheck CK Initial increase in CK. Continue IV fluids. Improving (3) Falls: Status: Acute Problem details: - caring for patient at home, reportedly had lift delivered today - no discernible injuries from falls within the past few days (did have shoulder injury in August for which she saw ortho) - fall precautions - PT and OT evals Patient likely needs 24/7 supervision and assistance with ambulation. would like to provide this. Patient and are posed to long term facility/rehab stay. (4) Hypoglycemia: Status: Acute Problem details: Could be contributing to altered mental status and falls. Patient and do not do monitoring at home. (5) Diabetes: Status: Chronic Problem details: Hypoglycemic here despite having apparently no blood sugar medications in the past 2-3 days. Resume metformin. Stop glimepiride. Possibly restart linagliptin. Close monitoring. (6) Hypertension: Status: Chronic (7) Dementia: Status: Chronic Problem details: 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 behavioral disturbance. Patient appears now to need 247 supervision and standby assistance with standing and transferring. believes he can do this. (8) Decreased appetite: Status: Acute Problem details: Likely related to whatever is causing her metabolic encephalopathy. Appetite is somewhat improving. 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 Obtain CT abdomen to evaluate for ongoing vomiting and poor oral intake. No significant abdominal tenderness. Patient was able to eat. Repeat evaluation if she stops eating again or reports abdominal pain. (12) Iliopsoas muscle hematoma: Status: Acute Problem details: Likely occurred an accidental falls at home (13) Rib fractures: Status: Acute Problem details: Likely occurred in accidental falls at home DS: Summary Hospital Course Hospital Course: Jami Frost is a 78 year old female with a history of moderate dementia, stage 3 kidney disease, type 2 diabetes mellitus, restless leg syndrome, hypertension, hypercholesterolemia, osteopenia who is cared for at home by her and reportedly called EMS because she has had multiple falls over the last few days. I only met her briefly. When I came in the room and introduced myself as the doctor admitting her, his reply was to ask what I knew about causes of FARIBA horses. He then asked me many questions about the causes and treatment of FARIBA horses despite me wanting to move the conversation more toward what brought her in today. I then had to leave the room for a minute and I told him that I would come right back, but when I came back he was already gone for the night. Per the ER doc the notes that he has been doing everything around the house and caring for her, the cooking, cleaning, setting up her medications but for unclear reasons stated that he could not give her her medications the last 3 days, that she was too sleepy, bed ridden, and falling frequently. It is reported that somebody dropped all lift off at the house today. It is not clear if he knows how to use this lift safely for her. He was also apparently unaware that she had a diagnosis of dementia although it is well documented in both her [facility] and [facility] records. The patient herself is unaware why she is here and is smiley and pleasant. She remained alert and smiling for the entirety of my conversation with her and exam. She says she feels just fine. She does endorse few falls at home but cannot tell me anything about them and says she has no pain and does not remember any injuries from falling. She told me both that her appetite was decreased and that it was just fine. Additional history from the : Diabetes management: Patient's gives all her medications. He has not given her any medications in the last 2 days because she has been with altered mental status. He does not check her blood sugars at all. Last hemoglobin A1c was in April at 8.3. Notably her blood sugar this morning was 54 having had no medications for diabetes taken in the last 2-3 days. Frequent falls: Patient's reports that she falls out of bed frequently, as often as daily. He has put an air mattress on the floor by her bed so she has a soft landing. When she falls she can get herself up. He reports she sometimes falls at other times including when she is standing up. It is unclear whether she is losing her balance or passing out. He does not check her blood sugar when this happens. She does not appear to be having seizures as he has not witnessed any seizure activity. She does not use an assistive device. She has a cane which she does not use at home. She normally ambulates independently. She is unable to get herself up when she falls. He recently got a lift to use at home to help her up. Code status is DNR. is healthcare power of insurance attorney 09/15/2024: Patient had another emesis last night. She is eating minimally. She is more alert today. Staff note she requires assist of 2 to stand and transfer. She reports no complaints or concerns today. I again reviewed with her her current health status and my concerns about her need for more care. 09/16/2024: Patient reports feeling fine today. Probably eating a little better though history is limited. Still needing assist of 2 to stand and transfer. More alert. Seen with her . CT obtained last night showed old fractures of the right 9th and 10th ribs, probable hematoma of the right iliopsoas, mild pulmonary edema, mild enteritis. 09/17/2024: Patient reports no concerns today. She is eating poorly but is eating today. She denies abdominal pain. Therapy has been working with the patient and her to optimize his ability to care for her at home. A recommendation is that she be placed in a long term facility but he is adamant about bring her home and caring for her there. At discharge her glimepiride was discontinued because of concerns about hyp oglycemia. It was recommend that she have PT, OT and nursing and social work instructor come to the home to help evaluate and manage the significant disabilities and medical problems that the patient has. seemed agreeable to this as an alternative to fpc placement. There remain ongoing concerns about his ability to provide adequate care for her given her fairly significant care needs. Status at Discharge Functional status at discharge: uses cane/walker Overall status at discharge: patient is progressing back to baseline Time Spent with Patient Time attestation: Total time spent providing and/or coordinating discharge services: 40 minutes Exam Narrative: Exam Narrative: She has fallen asleep in bed with her lunch largely on eaten. She arouses to voice but speaks minimally. Respirations are unlabored and clear to auscultation. Cardiovascular: S1, S2, regular rate and rhythm. Abdomen: Bowel sounds active. Abdomen is soft without tenderness. Const: Vital Signs, click to edit/add: Vital Signs - 24 hr 09/16/24 15:51 09/16/24 15:57 09/16/24 15:57 Temperature 97.5 F L Pulse Rate 61 Pulse Rate [Apical ] 65 Pulse Rate [Right Pulse Oximeter] Respiratory Rate 18 18 Blood Pressure [Ri ght Arm] 131/58 L Pulse Oximetry 97 [facility] 09/16/24 19:00 09/16/24 23:00 09/17/24 00:29 Temperature 97.5 F L 97.3 F L Pulse Rate Pulse Rate [Apical ] Pulse Rate [Right Pulse Oximeter] 69 62 Respiratory Rate 18 16 16 Blood Pressure [Ri ght Arm] 136/63 149/70 H Pulse Oximetry 97 100 [facility] Room Air 09/17/24 04:25 09/17/24 05:25 09/17/24 07:39 Temperature Pulse Rate 68 62 Pulse Rate [Apical ] Pulse Rate [Right Pulse Oximeter] 63 Respiratory Rate 20 Blood Pressure [Ri ght Arm] 148/64 H Pulse Oximetry 99 [facility] 09/17/24 08:09 09/17/24 08:09 09/17/24 11:46 Temperature 97.6 F 97.9 F Pulse Rate Pulse Rate [Apical ] 62 60 Pulse Rate [Right Pulse Oximeter] Respiratory Rate 16 16 16 Blood Pressure [Ri ght Arm] 127/65 143/63 H Pulse Oximetry 98 98 97 Oxygen Delivery [facility]od Room Air Room Air Room Air Documenting provider has reviewed patient's vital signs: yes DS: Data Imaging CT scan - abdomen: Radiologist's impression: INDICATION: Abdominal pain and vomiting. Patient did have 2 falls on 08/28 with a right hip injury. COMPARISON: None. TECHNIQUE: CT of the abdomen and pelvis with intravenous contrast. Multiplanar axial, coronal, and sagittal reformats were reconstructed. Contrast: 76 mL Isovue 370. FINDINGS: Lung bases: Prominent pulmonary vascular markings with smooth interlobular septal thickening. Calcified granuloma left lung. Liver: Minimal focal fat at the falciform ligament. Gallbladder and bile ducts: Normal gallbladder. No bile duct dilation. Pancreas: Normal. Spleen: Normal. Adrenal glands: Normal. Kidneys: Normal parenchyma. No cyst or solid mass. No calculi. No urinary tract dilation. Urinary bladder: Normal. Pelvis: Postmenopausal appearance of the uterus. No worrisome cyst or mass. Vessels: Atherosclerotic vascular calcifications. No aortic aneurysm. Patent mesenteric vessels. Bowel: Small paraesophageal hernia. Fluid distended stomach, small bowel, and proximal colon. No abnormal bowel wall thickening or abnormal bowel enhancement. Normal appendix. No colonic diverticuli. [id number] stool burden. Lymph nodes: No adenopathy. Peritoneum: No ascites. No free air. Abdominal wall: Fat containing umbilical hernia. No bowel containing hernia. Several hyperdense foci in the distal right psoas muscle and in the iliacus muscle. There is some fluid with scattered peripheral high density along the distal iliopsoas tendon. Prior right inferior abdominal wall surgical repair. Bones: Healing nondisplaced right 9th and 10th rib fractures. No focal worrisome bone lesions. IMPRESSION: 1. Appearance of the bowel most consistent with a mild enteritis. No findings of ischemia or findings specific to inflammatory bowel disease. 2. Mild pulmonary edema. 3. Abnormal appearance of the right iliopsoas muscles and distal tendon. Favor the sequela of a prior injury/retroperitoneal hematoma. Recommend clinical follow-up to ensure there are no signs of an expanding hematoma. Discussed with Dr. Fragoso at 4:13 p.m. on 09/15/2024. 4. Healing nondisplaced right 9th and 10th rib fractures. US - abdomen: Radiologist's impression: INDICATION: Poor appetite, elevated liver enzymes, altered mental status COMPARISON: none TECHNIQUE: Real time deng scale imaging and color Doppler analysis was performed of the right upper quadrant. FINDINGS: The visualized liver is of normal size and has uniform echogenicity. The left hepatic lobe is not well visualized. The IVC and aorta are not well visualized. Atherosclerotic changes are present. There is no evidence of ascites. The gallbladder is incompletely distended. The gallbladder wall measures 2.3 millimeters. The common bile duct is not visualized. The visualized pancreas appears normal. There is no evidence of a stone or hydronephrosis within the right kidney. The right kidney measures 8.2 cm in length. Main portal vein is patent with antegrade flow. IMPRESSION: Excessive bowel gas limits evaluation. No abnormalities within the visualized anatomy. CT scan - head: My impression: INDICATION: Altered mental status, falls. TECHNIQUE: Noncontrast CT of the head with multiplanar reconstruction utilizing bone and soft tissue algorithms. COMPARISON: CT head dated 08/28/2023. FINDINGS: No acute intracranial hemorrhage. Similar scattered confluent hypoattenuation within the white matter of both cerebral hemispheres, nonspecific, but typical of moderate chronic small vessel ischemic changes. The deng-white matter interface is preserved. Similar moderate diffuse parenchymal volume loss. As before, slight disproportionate enlargement of the ventricles, crowding of the sulci at the vertex, and prominence of the sylvian fissures. Intact calvarium and skull base. Unremarkable orbits. The paranasal sinuses and mastoid air cells are predominantly clear. IMPRESSION: 1. No acute intracranial hemorrhage or mass effect. 2. Similar moderate diffuse parenchymal volume loss and presumed chronic small vessel ischemic changes. 3. As before, slight disproportionate enlargement of the ventricles with respect to the sulci, apparent crowding of the sulci at the vertex, and prominence of the sylvian fissures, which can be seen in the setting of normal pressure hydrocephalus. Discharge Plan Discharge Disposition: Home w/ Parent or Adult Date of Admission: 09/14/24 15:00 Attending Provider on Discharge: Oliver Sánchez Primary Care Provider: Juju Mathews Anticipated Discharge Date/Time: 09/17/24 12:45 Discharge Medications: New torsemide 5 mg Tablet 5 mg PO DAILY@0800 Qty: 30 0RF Continued aspirin 81 mg tablet,delayed release (DR/EC) 81 mg PO QDAY Tradjenta 5 mg tablet 5 mg PO QDAY metformin 500 mg tablet 1,000 mg PO BID pravastatin 40 mg tablet 40 mg PO QDAY ropinirole 2 mg tablet 2 mg PO HS PRN venlafaxine 150 mg capsule,extended release 24hr 150 mg PO DAILY lisinopril 5 mg tablet 5 mg PO DAILY Qty: 30 0RF Discontinued glimepiride 4 mg tablet 4 mg PO QDAY Discharge Orders: Discharge Order (Routine); Ordered 09/17/24 Ordered By: Oliver Sánchez Patient Education: Torsemide (By mouth), Fall Prevention (DC) Activity Level: Up with assist and Use Walker Discharge Diet: Diabetic Follow Up Appointments: Juju Mathews [Primary Care Provider] - 09/19/24 2:40 pm ([facility] for follow-up, and recheck basic metabolic panel in 1 week.) Forms: [employer] Info Instructions Discharge Comments: Home nursing, PT, OT, social work instructor evaluation.
== END 2024-09-17 14:14 | disposition home or self-care (01) | DRG 71 ==
LOC: ED 19:14 → MEDSURG 20:11
PROVIDERS: Family Medicine; Admitting Provider Family Medicine; Emergency Provider Family Medicine; PCP Internal Medicine; Visit Provider Family Medicine
DX: G93.41 Metabolic encephalopathy (principal); M62.82 Rhabdomyolysis; S22.41XA Multiple fractures of ribs, right side, initial encounter for closed fracture; R41.82 Altered mental status, unspecified; N18.31 Chronic kidney disease, stage 3a; Z79.84 Long term (current) use of oral hypoglycemic drugs; G25.81 Restless legs syndrome; I12.9 Hypertensive chronic kidney disease with stage 1 through stage 4 chronic kidney disease, or unspecified chronic kidney disease; E11.22 Type 2 diabetes mellitus with diabetic chronic kidney disease; M85.80 Other specified disorders of bone density and structure, unspecified site; R29.6 Repeated falls; F03.B0 Unspecified dementia, moderate, without behavioral disturbance, psychotic disturbance, mood disturbance, and anxiety; R93.0 Abnormal findings on diagnostic imaging of skull and head, not elsewhere classified; Z68.23 Body mass index [BMI] 23.0-23.9, adult; E78.00 Pure hypercholesterolemia, unspecified; R74.01 Elevation of levels of liver transaminase levels; S70.01XA Contusion of right hip, initial encounter; E16.2 Hypoglycemia, unspecified; R63.0 Anorexia
CPT/HCPCS: 36415; 51798; 70450; 71045; 72125; 74177; 76705; 80053; 81001; 82077; 82550; 82962; 83605; 83735; 83880; 84145; 84443; 84484; 85025; 86140; 87086; 87186; 87631; 93005; 94761; 97110; 97116; 97162; 97166; 97530; 97535; 99284; 99285; G0378; A9270; J1650; J7030; Q9967